=== PATIENT | male | born 1960 | race Caucasian/White ===

== ENCOUNTER 2017-08-16 09:00 | Observation (INO) | payer OTHER ==
[~2017-08-16 09:00] MED LIST: Sodium Chloride 0.9% 5 ML Syringe FLUSH PRN
[2017-08-16] MEDS: Lactated Ringers 1,000 ML IV SCH ×2 (09:25→14:51)
[2017-08-16] MEDS ORDERED: Bupivacaine 0.5%/EPINEPHrine 1:200,000 30 ML SDV ONE (09:35)
[2017-08-16] MEDS ORDERED: ceFAZolin 1 GM Vial ONE ×3 (09:35→10:36)
[2017-08-16] MEDS ORDERED: Ondansetron 4 MG/2 ML SDV IV ONE (09:45)
[2017-08-16] MEDS ORDERED: ePHEDrine 50 MG/ML SDV IV ONE (09:45)
[2017-08-16] MEDS ORDERED: Lactated Ringers 1,000 ML ONE (09:45)
[2017-08-16] MEDS ORDERED: Succinylcholine 200 MG/10 ML MDV IV ONE (09:45)
[2017-08-16] MEDS ORDERED: Midazolam 1 MG/ML 2 ML SDV ONE (09:45)
[2017-08-16] MEDS ORDERED: Propofol 200 MG/20 ML SDV IV ONE (09:45)
[2017-08-16] MEDS ORDERED: Propofol 200 MG/20 ML SDV ONE (09:45)
[2017-08-16] MEDS ORDERED: ceFAZolin 1 GM Vial IV ONE (09:45)
[2017-08-16] MEDS ORDERED: Midazolam 1 MG/ML 2 ML SDV IV ONE (09:45)
[2017-08-16] MEDS ORDERED: fentaNYL 250 MCG/5 ML SDV ONE (09:45)
[2017-08-16] MEDS ORDERED: Dexamethasone 4 MG/ML SDV IV ONE (09:45)
[2017-08-16] MEDS ORDERED: Rocuronium 50 MG/5 ML Vial IV ONE (09:45)
[2017-08-16] MEDS ORDERED: fentaNYL 250 MCG/5 ML SDV IV ONE (09:45)
--- NOTE | 2017-08-16 09:46 | PCM.PN ---
- General Info Date of Service: 08/16/17 Admission Dx/Problem (Free Text): Ventral abdominal hernia Functional Status: Reports: Pain Controlled - Review of Systems General: Reports: Weakness HEENT: Reports: No Symptoms Pulmonary: Reports: No Symptoms Cardiovascular: Reports: No Symptoms Gastrointestinal: Reports: Other (This patient has a moderately enlarged ventral abdominal hernia that has become symptomatic. He'd like to have this corrected surgically.) Genitourinary: Reports: No Symptoms Musculoskeletal: Reports: No Symptoms Skin: Reports: No Symptoms Neurological: Reports: No Symptoms Psychiatric: Reports: No Symptoms - Patient Data Vitals - Most Recent: Last Vital Signs Temp 95.2 F L 08/16/17 09:13 Pulse 64 08/16/17 09:13 Resp 16 08/16/17 09:13 BP 147/105 H 08/16/17 09:13 Pulse Ox 98 08/16/17 09:13 Weight - Most Recent: 212 lb Med Orders - Current: Current Medications Lactated Ringer's (Ringers, Lactated) 1,000 mls @ 50 mls/hr IV ASDIRECTED [facility] Last Admin: 08/16/17 09:25 Dose: 50 mls/hr Sodium Chloride (Syrex Flush) 5 ml FLUSH Q8HR PRN PRN Reason: Keep Vein Open Discontinued Medications Bupivacaine HCl/Epinephrine Bitart (Marcaine 0.5%/Epinephrine 1:200,000) Confirm Administered Dose 30 ml .ROUTE .STK-MED ONE Stop: 08/16/17 09:36 Cefazolin Sodium (Ancef) Confirm Administered Dose 1 gm .ROUTE .STK-MED ONE Stop: 08/16/17 09:36 - Exam General: Alert, Oriented HEENT: Pupils Equal, Pupils Reactive, EOMI, Mucous Membr. Moist/[place] Neck: Supple Lungs: Clear to Auscultation, Normal Respiratory Effort Cardiovascular: Regular Rate, Regular Rhythm GI/Abdominal Exam: Normal Bowel Sounds, Soft, Non-Tender, No Organomegaly, No Distention, No Abnormal Bruit, No Mass, Pelvis Stable, Other (This patient has a moderately large ventral abdominal hernia that is symptomatic. This is reducible.) (Male) Exam: No Hernia, Normal Inspection, Normal Prostate, Circumcised Back Exam: Normal Inspection, Full Range of Motion Extremities: Normal Inspection, Normal Range of Motion, Non-Tender, No Pedal Edema, Normal Capillary Refill Skin: Warm, Dry, Intact Wound/Incisions: Healing Well Neurological: No New Focal Deficit Psy/Mental Status: Alert, Normal Affect, Normal Mood - Problem List & Annotations (1) Ventral hernia SNOMED Code(s): 156963397 Code(s): K43.9 - VENTRAL HERNIA WITHOUT OBSTRUCTION OR GANGRENE Status: Chronic Priority: Medium Current Visit: Yes Qualifiers: Obstruction and gangrene presence: without obstruction or gangrene Qualified Code(s): K43.9 - Ventral hernia without obstruction or gangrene - Problem List Review Problem List Initiated/Reviewed/Updated: Yes - My Orders Last 24 Hours: My Active Orders 08/15/17 10:30 Resuscitation Status Routine 08/16/17 09:00 Antiembolic Devices [RC] PER UNIT ROUTINE Patient to Empty Bladder [RC] ASDIRECTED Peripheral IV Care [RC] . DIRECTED Verify Patient Consent Obtain [RC] ASDIRECTED Lactated Ringers [Ringers, Lactated] 1,000 ml IV ASDIRECTED Sodium Chloride 0.9% [Syrex Flush] 5 ml FLUSH Q8HR PRN Peripheral IV Insertion Adult [OM.PC] Routine Sequential Compression Device [OM.PC] Routine 08/16/17 Breakfast Nothing Per Oral Diet [DIET] - Plan Plan:: Ventral abdominal hernia and repair with Marlex mesh.
[2017-08-16] MEDS ORDERED: Bupivacaine 0.5%/EPINEPHrine 1:200,000 30 ML SDV INJECT ONE (10:36)
[2017-08-16] MEDS ORDERED: Sodium Chloride 0.9% 20 ML SDV ONE (10:36)
[2017-08-16] MEDS ORDERED: Dexamethasone 4 MG/ML SDV ONE (10:36)
[2017-08-16] MEDS ORDERED: Morphine 4 MG/ML Syringe IVPUSH PRN (10:54)
[2017-08-16] MEDS ORDERED: fentaNYL 100 MCG/2 ML SDV IVPUSH PRN (10:55)
[2017-08-16] MEDS ORDERED: Ondansetron 4 MG/2 ML SDV IVPUSH PRN (10:55)
[2017-08-16] MEDS ORDERED: Morphine 2 MG/ML Syringe IVPUSH PRN (10:55)
--- NOTE | 2017-08-16 12:01 | PCM.OPNOTE ---
- General Post-Op/Procedure Note Date of Surgery/Procedure: 08/16/17 Operative Procedure(s): Ventral hernia repair, Marlex mesh placement. Release of small bowel adhesions. Partial omentectomy. Pre Op Diagnosis: Symptomatic ventral abdominal hernia Post-Op Diagnosis: As above, small bowel adhesions. Anesthesia Technique: General Mask Primary Surgeon: Marito Espinoza Complications: None Condition: Good Free Text/Narrative:: Preoperative diagnosis: Symptomatic ventral abdominal hernia, previous history of abdominal exploration with small bowel resection. Postoperative diagnosis: As above. Procedure performed: Repair of ventral abdominal hernia, placement of Marlex mesh, release of small bowel adhesions, partial omentectomy. Informed consent was obtained the patient regarding this procedure. All possible complications were thoroughly discussed. These include conservative care alternative methods of treatment, recurrence, infection, small bowel obstruction, bleeding, requirement of additional surgical procedures and other unknown complications. The patient decided to proceed. He was taken to the operating room and kept in the supine position. A satisfactory general anesthetic was administered by the insurance sales representative. His abdomen was thoroughly prepped and draped in the usual fashion. A vertical midline incision was made extending from the umbilicus superiorly for 5 inches and inferiorly for 3 inches. Subcutaneous dissection was performed. The hernia was readily identified 2 inches superior to the umbilicus. This had a right and left extension. We did extend the midline with a right lateral incision. The hernial sacs were dissected right down to the fascial openings. The fascial openings are slightly enlarged and the sacs were opened. This contained preperitoneal fat and omental tissue. These were excised. The pedicles were sutured with 0 Polysorb suture. In the middle the also encountered small bowel. Liver many adhesions between the small bowel. These were carefully lysed. The small bowel was then replaced back into the abdominal cavity after making sure there was good viability. The fascia was less than ideal. It was approximated with 1 Nurolon sutures. We also used a Marlex mesh to support the anterior abdominal fascia and anchored it with 0 nylon sutures. The entire wound was thoroughly irrigated with Ancef and saline. Small bleeders were cauterized. A 1/4 inch round Neal-Gil drain was left in the wound and brought out through the lateral edge of the right lateral incision. Approximately 15 mL of Marcaine 0.5 % with epinephrine was injected into the subcutaneoustissues and the fascial sheath to prevent postoperative pain. The subcutaneous tissue was approximated with 4-0 Polysorb and the skin was sutured with skin clips. The patient tolerated the procedure very well. There were no operative complications. Blood loss was approximately 10-15 mL. Sponge needle and instrument count were correct. The patient was transferred to the recovery room in an excellent condition.
[2017-08-16] MEDS ORDERED: HYDROmorphone 2 MG/ML SDV IVPUSH PRN (12:02)
[2017-08-16] MEDS: Ketorolac 30 MG/ML SDV IVPUSH PRN ×2 (12:49→21:34)
[2017-08-16] MEDS ORDERED: Non-Formulary Medication 1 Each (Rup Rub 1 APPLIC) TOP PRN (17:31)
[2017-08-16] MEDS ORDERED: Nitroglycerin 0.4 MG Tab.SL SL PRN (17:45)
[2017-08-16] MEDS ORDERED: Ondansetron 4 MG/2 ML SDV ONE (18:47)
[2017-08-16] MEDS ORDERED: Promethazine 25 MG in Sodium Chloride 0.9% 50 ML IV PRN (20:40)
[2017-08-16] MEDS: Promethazine 25 MG/ML SDV ONE ×2 (20:56→20:59)
[2017-08-17] MEDS: Lactated Ringers 1,000 ML IV SCH (00:31)
[2017-08-17] MEDS: Ondansetron 4 MG/2 ML SDV IVPUSH PRN ×2 (00:39→15:05)
[2017-08-17] MEDS: Ketorolac 30 MG/ML SDV IVPUSH PRN ×2 (06:03→15:05)
[2017-08-17 08:46] LABS: CHLORIDE,CL 107 mmol/L (98-115); SODIUM,NA 141 mmol/L (136-145)
[2017-08-17] MEDS ORDERED: Aspirin 81 MG Tab.EC PO SCH (09:00)
[2017-08-17] MEDS ORDERED: atorvaSTATin 40 MG Tab PO SCH (09:00)
[2017-08-17] MEDS ORDERED: Metoprolol Succinate 50 MG Tab.ER PO SCH (09:00)
[2017-08-17 11:43] VITALS: BP 123/71
--- NOTE | 2017-08-18 12:35 | PN ---
08/17/2017 PATIENT NAME: SANTIAGO SOTO SUBJECTIVE: This is a very pleasant 57-year-old gentleman who was admitted yesterday for elective ventral hernia repair. He did undergo the procedure yesterday. He also underwent a release of small-bowel adhesions and a partial omentectomy. He is doing well this morning. LABORATORY DATA: Indicates a normal hemoglobin of 12.4 and white count of 8.3. OBJECTIVE: VITAL SIGNS: Stable. Blood pressure is 120/77, oxygen saturation 96%, pulse is 80. His intake and output are satisfactory. GENERAL: On examination, the patient did complain of emesis last night, but he feels well this morning. He is on clear liquids. He has been passing some gas, but not had a bowel movement. He is alert, well oriented to space, time, and person. HEART AND LUNGS: Stable. ABDOMEN: Soft. The Neal-Gil is draining. Bowel sounds are present. EXTREMITIES: Normal. NEUROLOGIC: Intact. IMPRESSION AND PLAN: This is postop day #1 for ventral abdominal hernia repair with Marlex mesh and release of intestinal small bowel adhesions as well as partial omentectomy. The patient is doing well. We will get him up and move around today. Once he passes a little bit more flatus and he feels well, he could be discharged later on today. Discharge instructions will include no bending, turning, and lifting anything more than 10 pounds. He is also advised to wear the abdominal binder at all times, especially when up. We will follow him in the clinic in about 10 days to two weeks' time. Diet will be full liquids, advance to soft diet later on today. /[id number]/MODL MTDD
--- NOTE | 2017-08-22 09:50 | DISCH ---
FINAL DIAGNOSIS: Status post elective ventral hernia repair. BRIEF HISTORY: This 57-year-old gentleman was admitted for elective ventral hernia repair. He underwent procedure by Dr. Marito Espinoza. He had no complications during the surgery or postoperatively. He also underwent a repair of small-bowel adhesions and a partial omentectomy. This patient had a Marlex mesh and release of his intestinal small bowel adhesions as well as partial omentectomy. He did well postoperatively. He was up moving around. He was passing more flatus. On discharge, he felt well, and he was discharged that afternoon. He was given instructions of no bending, turning, lifting anything more than 10 pounds, to wear an abdominal binder at all the times, especially when up. He was advanced to a full liquid diet. He did well with that, so he was advanced to a soft diet later that day on day of discharge. PHYSICAL EXAM ON DISCHARGE: VITAL SIGNS: On discharge, blood pressure 122/71, heart rate 85, temperature 98.9, O2 saturation 94%, respiratory rate was 12. LABORATORY DATA: Labs on date of discharge, white count 8.3, hemoglobin 12.4, hematocrit 36.9. Electrolytes were good. AST 11, total protein 6.3, albumin 3.0. Neal-Gil Drain was pulled by Dr. Marito Espinoza on the day of discharge. Bowel sounds were present. DISPOSITION: The patient will be discharged from the hospital. He was given followup instructions. /[id number]/MODL
== END 2017-08-17 15:30 | disposition home or self-care (01) ==
LOC: KA.SDS 09:00 → KA.MS 12:30
PROVIDERS: ADMIT Family Medicine; ATTEND Family Medicine
DX: K43.9 Ventral hernia without obstruction or gangrene (principal); I25.10 Atherosclerotic heart disease of native coronary artery without angina pectoris; E78.00 Pure hypercholesterolemia, unspecified; I10 Essential (primary) hypertension; Z79.82 Long term (current) use of aspirin; Z79.899 Other long term (current) drug therapy; Z88.8 Allergy status to other drugs, medicaments and biological substances; Z88.2 Allergy status to sulfonamides; Z96.659 Presence of unspecified artificial knee joint
CPT/HCPCS: 36415; 49560; 49568; 80053; 85025; A9270; C1781; G0378; J0330; J0690; J1100; J1170; J1885; J2250; J2405; J2550; J2704; J3010; J7050; J7120

== ENCOUNTER 2017-08-24 20:00 | Inpatient (IN) | payer OTHER ==
[2017-08-24] MEDS ORDERED: Sodium Chloride 0.9% 1,000 ML IV ONE (20:34)
[2017-08-24] MEDS ORDERED: Ondansetron 4 MG/2 ML SDV IVPUSH ONE (20:34)
[2017-08-24] MEDS ORDERED: HYDROmorphone 1 MG/ML Syringe ONE (20:35)
[2017-08-24] MEDS ORDERED: Ondansetron 4 MG/2 ML SDV ONE (20:35)
[2017-08-24] MEDS: HYDROmorphone 1 MG/ML Syringe IVPUSH ONE ×2 (20:39→22:21)
--- NOTE | 2017-08-24 20:40 | EDM.PDOC ---
ED HPI GENERAL MEDICAL PROBLEM - General Chief Complaint: Abdominal Pain Stated Complaint: ABDOMINAL PAIN Time Seen by Provider: 08/24/17 20:29 Source of Information: Reports: Patient History Limitations: Reports: No Limitations - History of Present Illness INITIAL COMMENTS - FREE TEXT/NARRATIVE: Patient is a 57-year-old gentleman who presents to the emergency department via EMS with a complaint of abdominal pain. He underwent ventral hernia repair on 08/16/2017 was discharged from the hospital the next day. He had an uneventful hospital stay. Patient states he was feeling well since discharge from the hospital, but at 5 p.m. today developed moderate to severe diffuse abdominal pain and vomiting. Denies fever, trauma, bowel changes, or dysuria. Onset: Today Onset Date: 08/24/17 Onset Time: 17:00 Duration: Hour(s):, Getting Worse Location: Reports: Abdomen Quality: Reports: Ache, Throbbing Severity: Moderate Improves with: Reports: None Worsens with: Reports: None Associated Symptoms: Reports: Nausea/Vomiting - Related Data Allergies Allergy/AdvReac Type Severity Reaction Status Date / Time azathioprine sodium Allergy Cannot Verified 08/24/17 20:10 [From Imuran] Remember Sulfa (Sulfonamide Allergy Cannot Verified 08/24/17 20:10 Antibiotics) Remember Home Meds: Home Meds Folic Acid 400 mcg PO DAILY 09/10/13 [History] Metoprolol Succinate [Toprol XL 50mg] 50 mg PO DAILY 09/10/13 [History] atorvaSTATin Calcium [Atorvastatin Calcium] 40 mg PO DAILY 09/10/13 [History] Aspirin [Halfprin] 81 mg PO DAILY 09/26/13 [History] Cholecalciferol (Vitamin D3) [Vitamin D3] 4,000 unit PO DAILY 09/26/13 [History] InFLIXimab [Remicade] 500 mg IV NASREEN 09/26/13 [History] Nitroglycerin [Nitrostat] 0.4 mg SL ONETIME PRN 09/26/13 [History] Ibuprofen 200 - 600 mg PO TID PRN 08/15/17 [History] Past Medical History HEENT History: Reports: Impaired Vision Cardiovascular History: Reports: Angina, Stents Respiratory History: Reports: Other (See Below) Other Respiratory History: Hospitalized for PNeu Oct 2016 x 3days Gastrointestinal History: Reports: Other (See Below) Other Gastrointestinal History: Enlarged Spleen and fatty deposites onliver noted 2016 when hospitalized for Pneumonia, Cat Scan scheduled 3 mo following, Hx of crohns Neurological History: Reports: Concussion Hematologic History: Reports: Iron Deficiency Immunologic History: Reports: Immunosuppression - Infectious Disease History Infectious Disease History: Reports: Chicken Pox, Shingles - Past Surgical History HEENT Surgical History: Reports: None Cardiovascular Surgical History: Reports: Coronary Artery Stent Other Cardiovascular Surgeries/Procedures: November 2012 Respiratory Surgical History: Reports: None GI Surgical History: Reports: Cholecystectomy, Colostomy, Other (See Below) Other GI Surgeries/Procedures: perforated bowel with colostomy and colostomy reversal 1992 Neurological Surgical History: Reports: None Musculoskeletal Surgical History: Reports: Knee Replacement, Other (See Below) Other Musculoskeletal Surgeries/Procedures:: Left Knee replaced Sep 17 2015 Social & Family History - Family History Family Medical History: Noncontributory - Tobacco Use Smoking Status *Q: Never Smoker Years of Tobacco use: 1 Second Hand Smoke Exposure: Yes - Caffeine Use Caffeine Use: Reports: None - Alcohol Use Days Per Week of Alcohol Use: 2 Number of Drinks Per Day: 2 Total Drinks Per Week: 4 - Recreational Drug Use Recreational Drug Use: No ED ROS GENERAL - Review of Systems Review Of Systems: ROS reveals no pertinent complaints other than HPI. Constitutional: Reports: No Symptoms HEENT: Reports: No Symptoms Respiratory: Reports: No Symptoms Cardiovascular: Reports: No Symptoms Endocrine: Reports: No Symptoms GI/Abdominal: Reports: Abdominal Pain, Nausea, Vomiting. Denies: Bloody Stool, Constipation, Diarrhea : Reports: No Symptoms Musculoskeletal: Reports: No Symptoms Skin: Reports: No Symptoms Neurological: Reports: No Symptoms Psychiatric: Reports: No Symptoms Hematologic/Lymphatic: Reports: No Symptoms Immunologic: Reports: No Symptoms ED EXAM, GI/ABD - Physical Exam Exam: See Below Exam Limited By: No Limitations General Appearance: Alert, WD/WN, Mild Distress Throat/Mouth: Normal Inspection, Normal Oropharynx, No Airway Compromise Head: Atraumatic, Normocephalic Neck: Normal Inspection Respiratory/Chest: No Respiratory Distress, Lungs Clear, Normal Breath Sounds, No Accessory Muscle Use, Chest Non-Tender Cardiovascular: Regular Rate, Rhythm, No Murmur GI/Abdominal Exam: Normal Bowel Sounds, Rebound, Tender (diffusely). No: Rigid Back Exam: Normal Inspection. No: CVA Tenderness (L), CVA Tenderness (R) Extremities: Normal Inspection, No Pedal Edema Neurological: Alert, Oriented, Normal Cognition Psychiatric: Normal Affect, Normal Mood Skin Exam: Warm, Dry, Intact, Normal Color, No Rash Course - Orders/Labs/Meds Orders: Active Orders 24 hr Category Date Time Status CBC WITH AUTO DIFF [HEME] Stat Lab 08/24/17 20:11 Ordered CMP [COMPREHENSIVE METABOLIC PN,CMP] [CHEM] Stat Lab 08/24/17 20:11 Ordered Sodium Chloride 0.9% [Syrex Flush] Med 08/24/17 20:12 Active 5 ml FLUSH Q8HR PRN Saline Lock Insert [OM.PC] Routine Oth 08/24/17 20:12 Ordered Medication Orders Sodium Chloride (Syrex Flush) 5 ml FLUSH Q8HR PRN PRN Reason: Keep Vein Open Meds: Medications Generic Name Dose Route Start Last Admin Trade Name Freq PRN Reason Stop Dose Admin Sodium Chloride 5 ml 08/24/17 20:12 Syrex Flush FLUSH Q8HR PRN Keep Vein Open - Radiology Interpretation Free Text/Narrative:: CT OF ABDOMEN AND PELVIS WITH IV CONTRAST SHOWS SMALL FAT-CONTAINING HERNIAS AND POSTSURGICAL CHANGES IN THE REGION OF THE UMBILICUS WHICH SHOWS FAT STRANDING. NO EVIDENCE FOR INCARCERATION. FINDINGS CONSISTENT WITH PARTIAL SMALL BOWEL OF TRACTION CT Results Date: 08/24/17 - Re-Assessments/Exams Free Text/Narrative Re-Assessment/Exam: 08/24/17 22:17 PATIENT AFEBRILE, NONTOXIC APPEARING. VITAL SIGNS ARE STABLE. DISCUSSED CASE WITH DR. GARCIA AND PATIENT WILL BE ADMITTED AND FOLLOWED. Departure - Departure Time of Disposition: 22:19 Disposition: Admitted As Inpatient 66 Condition: Fair Clinical Impression: Small bowel obstruction Hernia, umbilical Qualifiers: Obstruction and gangrene presence: without obstruction or gangrene Qualified Code(s): K42.9 - Umbilical hernia without obstruction or gangrene - Discharge Information Referrals: Joy Espinoza MD [Primary Care Provider] - - My Orders Last 24 Hours: My Active Orders 08/24/17 20:11 CBC WITH AUTO DIFF [HEME] Stat CMP [COMPREHENSIVE METABOLIC PN,CMP] [CHEM] Stat 08/24/17 20:12 Sodium Chloride 0.9% [Syrex Flush] 5 ml FLUSH Q8HR PRN Saline Lock Insert [OM.PC] Routine - Assessment/Plan Last 24 Hours: My Active Orders 08/24/17 20:11 CBC WITH AUTO DIFF [HEME] Stat CMP [COMPREHENSIVE METABOLIC PN,CMP] [CHEM] Stat 08/24/17 20:12 Sodium Chloride 0.9% [Syrex Flush] 5 ml FLUSH Q8HR PRN Saline Lock Insert [OM.PC] Routine Assessment:: SMALL BOWEL OBSTRUCTION, UMBILICAL HERNIA Plan: ADMIT INPATIENT
[2017-08-24] MEDS: Sodium Chloride 0.9% 5 ML Syringe FLUSH PRN (20:42)
[2017-08-24 21:03] LABS: CHLORIDE,CL 105 mmol/L (98-115); SODIUM,NA 141 mmol/L (136-145)
[2017-08-24] MEDS ORDERED: Sodium Chloride 0.9% 50 ML SDV FLUSH ONE (21:20)
[2017-08-24] MEDS ORDERED: Iopamidol 612 MG/ML 100 ML Bottle IVPUSH ONE (21:35)
[2017-08-24] MEDS ORDERED: HYDROmorphone 1 MG/ML Syringe IVPUSH ONE (22:23)
[2017-08-24] MEDS ORDERED: Morphine 2 MG/ML Syringe IVPUSH PRN (23:18)
[2017-08-24] MEDS: Lactated Ringers 1,000 ML IV SCH (23:51)
[2017-08-25] MEDS: Ondansetron 4 MG/2 ML SDV IV PRN ×3 (03:08→17:01)
[2017-08-25] MEDS ORDERED: Ketorolac 30 MG/ML SDV IVPUSH ONE (06:54)
[2017-08-25] MEDS ORDERED: Ketorolac 30 MG/ML SDV ONE (06:56)
[2017-08-25] MEDS: Lactated Ringers 1,000 ML IV SCH ×3 (06:59→23:33)
[2017-08-25 08:12] LABS: CHLORIDE,CL 107 mmol/L (98-115); SODIUM,NA 142 mmol/L (136-145)
[2017-08-25] MEDS ORDERED: Metoprolol Succinate 50 MG Tab.ER PO SCH (09:00)
--- NOTE | 2017-08-25 10:51 | PCM.HP ---
H&P History of Present Illness - General Date of Service: 08/25/17 Admit Problem/Dx: Small bowel obstruction Source of Information: Patient, Old Records, Provider (Ap Olson, ED provider) History Limitations: Reports: No Limitations - History of Present Illness Initial Comments - Free Text/Narative: Mr. Parry is a 57yoM who underwent ventral hernia repair on 08/16/17 and was doing well post-operatively until the evening of 08/24/17 around 1700 when he developed acute lower abdominal pain. He had a large Thanksgiving meal earlier in the afternoon around 1400. In addition to the pain, developed nausea and vomiting without any alleviating factors that continued to worsen and reported to the [facility] ED late in the evening of 08/24/17 where evaluation was significant for CT A/P with findings of partial mid small bowel obstruction as well as postsurgical changes in the region of the umbilicus with edema/fat stranding of small fat-containing hernias and small amount of soft tissue gas likely related to recent surgery. I was called for admission given the small bowel obstruction and associated pain and nausea. Upon my evaluation of him this morning, he states he is feeling tired, but otherwise much improved. Minimal lower abdominal pain and no nausea currently. Received morphine 2mg and Zofran 4mg IV around 0300. Admits to feeling some flatus twice in the last several hours. He denies having developed any other symptoms since admission, including denying any fever or chills. Denies any hx of SBO, but has had multiple abdominal surgeries and Crohn's disease well controlled on Rem[employer] recently. Anterior Abdomen Pain Score (Numeric/FACES): 4 - Related Data Allergies/Adverse Reactions: Allergies Allergy/AdvReac Type Severity Reaction Status Date / Time azathioprine sodium Allergy Cannot Verified 08/24/17 20:10 [From Imuran] Remember Sulfa (Sulfonamide Allergy Cannot Verified 08/24/17 20:10 Antibiotics) Remember Home Medications: Home Meds Folic Acid 400 mcg PO DAILY 09/10/13 [History] Metoprolol Succinate [Toprol XL 50mg] 50 mg PO DAILY 09/10/13 [History] atorvaSTATin Calcium [Atorvastatin Calcium] 40 mg PO DAILY 09/10/13 [History] Aspirin [Halfprin] 81 mg PO DAILY 09/26/13 [History] Cholecalciferol (Vitamin D3) [Vitamin D3] 4,000 unit PO DAILY 09/26/13 [History] InFLIXimab [Remicade] 500 mg IV ASDIRECTED 09/26/13 [History] Nitroglycerin [Nitrostat] 0.4 mg SL ONETIME PRN 09/26/13 [History] Ibuprofen 200 - 600 mg PO TID PRN 08/15/17 [History] Past Medical History HEENT History: Reports: Impaired Vision Cardiovascular History: Reports: Angina, Stents Respiratory History: Reports: Other (See Below) Other Respiratory History: Hospitalized for PNeu Oct 2016 x 3days Gastrointestinal History: Reports: Other (See Below) Other Gastrointestinal History: Enlarged Spleen and fatty deposites onliver noted 2016 when hospitalized for Pneumonia, Cat Scan scheduled 3 mo following, Hx of crohns Neurological History: Reports: Concussion Hematologic History: Reports: Iron Deficiency Immunologic History: Reports: Immunosuppression - Infectious Disease History Infectious Disease History: Reports: Chicken Pox, Shingles - Past Surgical History HEENT Surgical History: Reports: None Cardiovascular Surgical History: Reports: Coronary Artery Stent Other Cardiovascular Surgeries/Procedures: November 2012 Respiratory Surgical History: Reports: None GI Surgical History: Reports: Cholecystectomy, Colostomy, Other (See Below) Other GI Surgeries/Procedures: perforated bowel with colostomy and colostomy reversal 1992 Neurological Surgical History: Reports: None Musculoskeletal Surgical History: Reports: Knee Replacement, Other (See Below) Other Musculoskeletal Surgeries/Procedures:: Left Knee replaced Sep 17 2015 Social & Family History - Family History Family Medical History: Noncontributory - Tobacco Use Smoking Status *Q: Never Smoker Years of Tobacco use: 1 Second Hand Smoke Exposure: Yes - Caffeine Use Caffeine Use: Reports: None - Alcohol Use Days Per Week of Alcohol Use: 2 Number of Drinks Per Day: 2 Total Drinks Per Week: 4 - Recreational Drug Use Recreational Drug Use: No H&P Review of Systems - Review of Systems: Review Of Systems: See Below General: Reports: Weakness (generalized). Denies: Fever, Chills HEENT: Denies: Headaches (resolved since earlier this AM), Sore Throat, Visual Changes Pulmonary: Denies: Shortness of Breath, Wheezing, Cough Cardiovascular: Denies: Chest Pain, Palpitations, Edema Gastrointestinal: Reports: Abdominal Pain, Anorexia, Flatus. Denies: Constipation, Diarrhea, Nausea (resolved since early this AM), Vomiting (not since arrival) Genitourinary: Denies: Dysuria, Frequency, Pain Musculoskeletal: Denies: Back Pain, Joint Pain, Muscle Stiffness Skin: Denies: Rash Neurological: Denies: Dizziness, Numbness, Syncope, Tingling Exam - Exam Exam: See Below - Vital Signs Vital Signs: Last Vital Signs Temp 36.6 C 08/25/17 07:00 Pulse 67 08/25/17 07:00 Resp 16 08/25/17 07:00 BP 122/79 08/25/17 07:00 Pulse Ox 94 L 08/25/17 07:00 Weight: 94.347 kg - Exam Physical Exam Comments:: GENERAL: Adult white male lying in hospital bed in no acute distress. HEENT: Normocephalic, atraumatic. Conjunctiva clear. Nares patent without discharge. Mucous membranes moist. NECK: Supple, no masses. CV: Regular rate and rhythm, no murmurs, rubs, or gallops. 2+ radial pulses. PULMONARY: Normal effort, clear to auscultation bilaterally, no wheezes, rales, or rhonchi. ABDOMEN: Positive bowel sounds in all 4 quadrants, soft, nondistended, mild tenderness to palpation in lower quadrants without guarding/rigidity/rebound. EXTREMITIES: No edema, cyanosis, or clubbing. MUSCULOSKELETAL: Moves all extremities well. NEUROLOGICAL: No obvious deficits. DERMATOLOGIC: No rashes or suspicious lesions in exposed areas. PSYCHIATRIC: Alert, interactive, appropriate affect. - Patient Data Lab Results Last 24 hrs: Laboratory Results - last 24 hr 08/25/17 08/25/17 Range/Units 07:10 07:10 WBC 6.3 (5.0-10.0) 10^3/uL RBC 4.34 L (4.50-6.00) 10^6/uL Hgb 13.0 (13.0-17.0) g/dL Hct 38.7 L (40.0-52.0) % MCV 89.1 (82.0-92.0) fL MCH 29.9 (27.0-31.0) pg MCHC 33.6 (32.0-36.0) g/dL RDW 13.0 (11.5-14.5) % Plt Count 248 (150-300) 10^3/uL MPV 7.6 (7.4-10.4) fL Neut % (Auto) 59.5 (50.0-70.0) % Lymph % (Auto) 25.7 (20.0-40.0) % Hendry % (Auto) 7.6 (2.0-8.0) % Eos % (Auto) 6.2 H (1.0-3.0) % Baso % (Auto) 1.0 (0.0-1.0) % Neut # (Auto) 3.7 (2.5-7.0) 10^3/uL Lymph # (Auto) 1.6 (1.0-4.0) 10^3/uL Hendry # (Auto) 0.5 (0.1-0.8) 10^3/uL Eos # (Auto) 0.4 H (0.1-0.3) 10^3/uL Baso # (Auto) 0.1 (0.0-0.1) 10^3/uL Sodium 142 (136-145) mmol/L Potassium 4.0 (3.3-5.3) mmol/L Chloride 107 (98-115) mmol/L Carbon Dioxide 28.2 (21.0-32.0) mmol/L BUN 24 (6-25) mg/dL Creatinine 1.01 (0.51-1.17) mg/dL Est Cr Clr Drug Dosing 91.19 mL/min Estimated GFR (MDRD) > 60 mL/min Glucose 110 (70-110) mg/dL Calcium 8.4 L (8.7-10.3) mg/dL Total Bilirubin 0.6 (0.2-1.0) mg/dL AST 14 L (15-37) U/L ALT 20 (12-78) U/L Alkaline Phosphatase 81 (46-116) IU/L Total Protein 6.2 L (6.4-8.2) g/dL Albumin 2.88 L (3.00-4.80) g/dL Result Diagrams: 08/25/17 07:10 08/25/17 07:10 *Q Meaningful Use (ADM) - VTE *Q VTE Criteria *Q: - Stroke *Q Stroke Criteria *Q: - AMI *Q AMI Criteria *Q: Problem List Initiated/Reviewed/Updated: Yes Orders Last 24hrs: Active Orders 24 hr Category Date Time Status Ambulate [RC] ASDIRECTED Care 08/25/17 10:50 Ordered Antiembolic Devices [RC] PER UNIT ROUTINE Care 08/24/17 23:21 Active Intake and Output [RC] 1400,2200,0600 Care 08/24/17 23:19 Active Oxygen Therapy [RC] PRN Care 08/24/17 23:19 Active Up With Assistance [RC] ASDIRECTED Care 08/24/17 23:18 Active VTE/DVT Education [RC] PER UNIT ROUTINE Care 08/24/17 23:19 Active Clear Liquid Diet [DIET] Diet 08/25/17 Lunch Ordered CULTURE WOUND [RM] Routine Lab 08/24/17 22:50 Received HYDROmorphone [Dilaudid] Med 08/25/17 10:44 Ordered 1 mg IVPUSH Q4H PRN Lactated Ringers [Ringers, Lactated] 1,000 ml Med 08/24/17 23:30 Active IV ASDIRECTED Ondansetron [Zofran] Med 08/24/17 23:18 Active 4 mg IV Q6H PRN Sequential Compression Device [OM.PC] Per Unit Routine Oth 08/24/17 23:20 Ordered Medication Orders Hydromorphone HCl (Dilaudid) 1 mg IVPUSH Q4H PRN PRN Reason: Pain Lactated Ringer's (Ringers, Lactated) 1,000 mls @ 125 mls/hr IV ASDIRECTED [facility] Last Admin: 08/25/17 06:59 Dose: 125 mls/hr Infusion: 08/25/17 06:59 Dose: 125 mls/hr Admin: 08/24/17 23:51 Dose: 125 mls/hr Ondansetron HCl (Zofran) 4 mg IV Q6H PRN PRN Reason: Nausea/Vomiting Last Admin: 08/25/17 03:08 Dose: 4 mg Sodium Chloride (Syrex Flush) 5 ml FLUSH Q8HR PRN PRN Reason: Keep Vein Open Last Admin: 08/24/17 20:42 Dose: 5 ml Assessment/Plan Comment:: Mr. Parry is a 57yoM with a history significant for multiple abdominal surgeries including ventral hernia repair on 08/16/17, Crohn's disease, and CAD , who developed acute abdominal pain on 08/24/17. Evaluation in the ED significant for CT A/P with findings of partial mid small bowel obstruction as well as postsurgical changes in the region of the umbilicus with edema/fat stranding of small fat-containing hernias and small amount of soft tissue gas likely related to recent surgery. He is being admitted for inpatient management for small bowel obstruction. # Small bowel obstruction No evidence of infection or electrolyte imbalance on admission or repeat laboratory studies this morning. Symptomatically improved with bowel rest and IVF in addition to morphine and Zofran x1 overnight. He reports passing flatus and has active bowel sounds this morning. Given the improvement, will advance diet to clear liquids and monitor clinical status. Encourage ambulation. Continue monitoring I/O and will plan to decrease IVF when tolerating oral intake. If not continuing to improve, will consult with general surgery for consideration of surgical exploration. # S/p ventral hernia repair with residual small fat-containing hernias Symptomatically was doing quite well post-operatively until last evening when SBO developed. Incision site doing well without evidence of infection. Will continue to monitor clinically. # Crohn's disease S/p bowel resection in the . Recently well controlled on Rem[employer]. Likely contribution of adhesions and current small bowel obstruction. # Eosinophilia Not previously noted on differential. Asymptomatic. Repeat in the future. Chronic conditions: # CAD/HTN/HLD: Stable. Restart ASA, metoprolol, and atorvastatin once tolerating oral intake. # Arthritis: Stable. Uses occasional ibuprofen at home, which is being held in the setting of SBO. Hospitalization details: # FEN: LR @ 125cc/hr, as above. Electrolytes normal. Advance diet to clear liquids, as above. # PPX: Low risk for DVT, so will use SCDs and frequent ambulation. # Code status: FULL. # Emergency contact: Mer . # Disposition: Admit to inpatient status for management of small bowel obstruction.
[2017-08-25] MEDS: Sodium Chloride 0.9% 5 ML Syringe FLUSH PRN ×3 (12:50→17:01)
[2017-08-25] MEDS: HYDROmorphone 1 MG/ML Syringe IVPUSH PRN (12:56)
[2017-08-25] MEDS ORDERED: Promethazine 6.25 MG in Sodium Chloride 0.9% 50 ML IV PRN (19:37)
[2017-08-26] MEDS: HYDROmorphone 1 MG/ML Syringe IVPUSH PRN ×2 (04:36→08:53)
[2017-08-26] MEDS: Lactated Ringers 1,000 ML IV SCH ×2 (06:53→16:29)
[2017-08-26] MEDS: Sodium Chloride 0.9% 5 ML Syringe FLUSH PRN ×2 (08:54→12:07)
[2017-08-26 10:36] LABS: CHLORIDE,CL 104 mmol/L (98-115); SODIUM,NA 140 mmol/L (136-145)
[2017-08-26] MEDS: Ondansetron 4 MG/2 ML SDV IV PRN ×2 (12:07→20:19)
--- NOTE | 2017-08-26 13:20 | PCM.PN ---
- General Info Date of Service: 08/26/17 Admission Dx/Problem (Free Text): Small bowel obstruction Subjective Update: Since yesterday morning, diet was attempted to be advanced to clear liquids yesterday afternoon, but he had recurring abdominal pain, nausea, and emesis relieved with IV medications. Since that time, he has again had improvement with improved abdominal pain and nausea. Since yesterday afternoon, he has had 2 doses of antiemetics and 2 doses of hydromorphone. Yesterday, he admitted to having some flatus passing, but denies any this morning thus far. He denies any new symptoms, including fever, chills, chest pain, shortness of breath, localized abdominal pain, dysuria, or incisional complaints. He is concerned about being able to make it to his mother's next Monday. No nursing concerns. - Patient Data Vitals - Most Recent: Last Vital Signs Temp 36.9 C 08/26/17 11:00 Pulse 79 08/26/17 11:00 Resp 16 08/26/17 11:00 BP 127/92 H 08/26/17 11:00 Pulse Ox 94 L 08/26/17 11:00 Weight - Most Recent: 94.347 kg I&O - Last 24 Hours: Intake & Output 08/25/17 08/26/17 08/26/17 22:59 06:59 14:59 Intake Total 1044 1010 Output Total 900 1600 Balance 144 1010 -1600 Lab Results Last 24 Hours: Laboratory Results - last 24 hr 08/26/17 08/26/17 Range/Units 10:05 10:07 WBC 4.5 L (5.0-10.0) 10^3/uL RBC 4.49 L (4.50-6.00) 10^6/uL Hgb 13.5 (13.0-17.0) g/dL Hct 40.5 (40.0-52.0) % MCV 90.2 (82.0-92.0) fL MCH 30.0 (27.0-31.0) pg MCHC 33.2 (32.0-36.0) g/dL RDW 12.9 (11.5-14.5) % Plt Count 277 (150-300) 10^3/uL MPV 6.5 L (7.4-10.4) fL Neut % (Auto) 47.4 L (50.0-70.0) % Lymph % (Auto) 34.2 (20.0-40.0) % Gaston % (Auto) 8.8 H (2.0-8.0) % Eos % (Auto) 7.7 H (1.0-3.0) % Baso % (Auto) 1.9 H (0.0-1.0) % Neut # (Auto) 2.2 L (2.5-7.0) 10^3/uL Lymph # (Auto) 1.5 (1.0-4.0) 10^3/uL Gaston # (Auto) 0.4 (0.1-0.8) 10^3/uL Eos # (Auto) 0.3 (0.1-0.3) 10^3/uL Baso # (Auto) 0.1 (0.0-0.1) 10^3/uL Sodium 140 (136-145) mmol/L Potassium 4.3 (3.3-5.3) mmol/L Chloride 104 (98-115) mmol/L Carbon Dioxide 29.7 (21.0-32.0) mmol/L BUN 13 (6-25) mg/dL Creatinine 1.07 (0.51-1.17) mg/dL Est Cr Clr Drug Dosing 86.08 mL/min Estimated GFR (MDRD) > 60 mL/min Glucose 94 (70-110) mg/dL Calcium 8.5 L (8.7-10.3) mg/dL Total Bilirubin 0.7 (0.2-1.0) mg/dL AST 14 L (15-37) U/L ALT 19 (12-78) U/L Alkaline Phosphatase 83 (46-116) IU/L C-Reactive Protein 0.2 (0.0-0.9) mg/dL Total Protein 6.5 (6.4-8.2) g/dL Albumin 3.02 (3.00-4.80) g/dL Satnam Results Last 24 Hours: Microbiology 08/24/17 22:50 Wound Culture - Final Abdomen - Incision Staphylococcus Coagulase Neg Med Orders - Current: Current Medications Hydromorphone HCl (Dilaudid) 1 mg IVPUSH Q4H PRN PRN Reason: Pain Last Admin: 08/26/17 08:53 Dose: 1 mg Lactated Ringer's (Ringers, Lactated) 1,000 mls @ 125 mls/hr IV ASDIRECTED TELMA Last Admin: 08/26/17 06:53 Dose: 125 mls/hr Promethazine HCl 6.25 mg/ (Sodium Chloride) 50.25 mls @ 200 mls/hr IV Q4H PRN PRN Reason: Nausea/Vomiting Last Admin: 08/25/17 20:05 Dose: 200 mls/hr Ondansetron HCl (Zofran) 4 mg IV Q4H PRN PRN Reason: Nausea/Vomiting Last Admin: 08/26/17 12:07 Dose: 4 mg Sodium Chloride (Syrex Flush) 5 ml FLUSH Q8HR PRN PRN Reason: Keep Vein Open Last Admin: 08/26/17 12:07 Dose: 5 ml Discontinued Medications Hydromorphone HCl (Dilaudid) 1 mg IVPUSH ONETIME ONE Stop: 08/24/17 20:35 Last Admin: 08/24/17 22:21 Dose: 1 mg Hydromorphone HCl (Dilaudid) Confirm Administered Dose 1 mg .ROUTE .STK-MED ONE Stop: 08/24/17 20:36 Last Admin: 08/24/17 20:41 Dose: Not Given Hydromorphone HCl (Dilaudid) 1 mg IVPUSH ONETIME ONE Stop: 08/24/17 22:24 Last Admin: 08/24/17 23:54 Dose: Not Given Sodium Chloride (Normal Saline) 1,000 mls @ 999 mls/hr IV .BOLUS ONE Stop: 08/24/17 21:34 Last Admin: 08/24/17 20:49 Dose: 999 mls/hr Iopamidol (Isovue-300 (61%)) 100 ml IVPUSH ONETIME ONE Stop: 08/24/17 21:36 Last Admin: 08/24/17 21:39 Dose: 99 ml Ketorolac Tromethamine (Toradol) 30 mg IVPUSH ONETIME ONE Stop: 08/25/17 06:55 Last Admin: 08/25/17 07:00 Dose: 30 mg Ketorolac Tromethamine (Toradol) Confirm Administered Dose 30 mg .ROUTE .STK- MED ONE Stop: 08/25/17 06:57 Last Admin: 08/25/17 07:01 Dose: Not Given Metoprolol Succinate (Toprol Xl) 50 mg PO DAILY TELMA Morphine Sulfate (Morphine) 2 mg IVPUSH Q2H PRN PRN Reason: Pain (severe 7-10) Last Admin: 08/25/17 03:11 Dose: 2 mg Ondansetron HCl (Zofran) 4 mg IVPUSH ONETIME ONE Stop: 08/24/17 20:35 Last Admin: 08/24/17 20:38 Dose: 4 mg Ondansetron HCl (Zofran) Confirm Administered Dose 4 mg .ROUTE .STK-MED ONE Stop: 08/24/17 20:36 Last Admin: 08/24/17 20:41 Dose: Not Given Ondansetron HCl (Zofran) 4 mg IV Q6H PRN PRN Reason: Nausea/Vomiting Last Admin: 08/25/17 12:50 Dose: 4 mg Sodium Chloride (Normal Saline) 50 ml FLUSH ONETIME ONE Stop: 08/24/17 21:21 Last Admin: 08/24/17 21:38 Dose: 50 ml - Exam Physical Findings Comments:: GENERAL: Adult white male sitting in bedside chair in no acute distress. HEENT: Normocephalic, atraumatic. Conjunctiva clear. CV: Regular rate and rhythm, no murmurs, rubs, or gallops. 2+ radial pulses. PULMONARY: Normal effort, clear to auscultation bilaterally, no wheezes, rales, or rhonchi. ABDOMEN: Positive bowel sounds in all 4 quadrants, soft, nondistended, mild tenderness to palpation in lower quadrants without guarding/rigidity/rebound. Incision of mid abdomen clean and dry with emily in place. EXTREMITIES: No edema, cyanosis, or clubbing. MUSCULOSKELETAL: Moves all extremities well. NEUROLOGICAL: No obvious deficits. DERMATOLOGIC: No rashes or suspicious lesions in exposed areas. PSYCHIATRIC: Alert, interactive, appropriate affect. - Problem List Review Problem List Initiated/Reviewed/Updated: Yes - My Orders Last 24 Hours: My Active Orders 08/25/17 16:21 Ondansetron [Zofran] 4 mg IV Q4H PRN 08/25/17 19:37 Promethazine [Phenergan] 6.25 mg Sodium Chloride 0.9% [Normal Saline] 50 ml IV Q4H 08/25/17 Dinner NPO [Nothing Per Oral Diet] [DIET] 08/26/17 13:18 Vital Signs [RC] Q8H - Plan Plan:: Mr. Parry is a 57yoM with a history significant for multiple abdominal surgeries including ventral hernia repair on 08/16/17, Crohn's disease, and CAD , who developed acute abdominal pain on 08/24/17. Evaluation in the ED significant for CT A/P with findings of partial mid small bowel obstruction as well as postsurgical changes in the region of the umbilicus with edema/fat stranding of small fat-containing hernias and small amount of soft tissue gas likely related to recent surgery. He was admitted for inpatient management for small bowel obstruction. # Small bowel obstruction No evidence of infection or electrolyte imbalance on admission or repeat laboratory studies this morning. Symptomatically improved with bowel rest and IVF as needed antiemetics, but had worsening with attempt to advance to clear liquids on 08/25/17. He denies having passed flatus this morning, but has active bowel sounds and reassuring abdominal examination. Will proceed with sips of water and ice chips and monitor clinical status with hope to advance diet if passing flatus and having improvement in pain and nausea. Encourage ambulation. Continue monitoring I/O and will plan to decrease IVF when tolerating oral intake. If not continuing to improve, will consult with general surgery for consideration of surgical exploration. # S/p ventral hernia repair with residual small fat-containing hernias Symptomatically was doing quite well post-operatively until last evening when SBO developed. Incision site doing well without evidence of infection. Will continue to monitor clinically. # Crohn's disease S/p bowel resection in the . Recently well controlled on [employer]. Likely contribution of adhesions and current small bowel obstruction. # Eosinophilia Not previously noted on differential. Asymptomatic. Reassess in the future. Chronic conditions: # CAD/HTN/HLD: Stable. Restart ASA, metoprolol, and atorvastatin once tolerating oral intake. # Arthritis: Stable. Uses occasional ibuprofen at home, which is being held in the setting of SBO. Hospitalization details: # FEN: LR @ 125cc/hr, as above. Electrolytes normal. Advance diet when clinically indicated, as above. # PPX: Low risk for DVT, so will use SCDs and frequent ambulation. # Code status: FULL. # Emergency contact: Mer . # Disposition: Continue in inpatient status for management of small bowel obstruction.
[2017-08-27] MEDS: Lactated Ringers 1,000 ML IV SCH ×2 (00:09→08:07)
[2017-08-27] MEDS: Ondansetron 4 MG/2 ML SDV IV PRN (06:55)
[2017-08-27 08:47] VITALS: BP 141/104
[2017-08-27] MEDS ORDERED: methylPREDNISolone Sodium Succinate 125 MG/2 ML SDV IVPUSH ONE (09:07)
[2017-08-27] MEDS ORDERED: Metoclopramide 10 MG/2 ML SDV IVPUSH SCH ×3 (09:15→16:00)
[2017-08-27] MEDS ORDERED: Metoprolol Succinate 50 MG Tab.ER PO SCH (09:15)
[2017-08-27] MEDS: Sodium Chloride 0.9% 5 ML Syringe FLUSH PRN (09:31)
--- NOTE | 2017-08-27 12:46 | PCM.DCSUM1 ---
Discharge Summary - Hospital Course Free Text/Narrative:: Date of admission: 08/24/17 Date of discharge: 08/27/17 Admission diagnoses: 1. Small bowel obstruction 2. S/p ventral hernia repair 3. Crohn's disease 4. Eosinophilia Discharge diagnoses: 1. Small bowel obstruction 2. S/p ventral hernia repair 3. Crohn's disease 4. Eosinophilia Consultations: [facility] General Surgery, Dr. Mckenna Walker Procedures: None Hospital course: Mr. Parry is a 57yoM with a history significant for multiple abdominal surgeries including ventral hernia repair with mesh by Dr. Mulugeta Espinoza on , Crohn's disease, and CAD, who developed acute abdominal pain on 08/24/17. Evaluation in the ED significant for CT A/P with findings of partial mid small bowel obstruction as well as postsurgical changes in the region of the umbilicus with edema/fat stranding of small fat-containing hernias and small amount of soft tissue gas likely related to recent surgery. He was admitted for inpatient management for small bowel obstruction in the setting of recent ventral hernia repair. He has had no evidence of infection or electrolyte imbalance on admission or repeat laboratory studies. He symptomatically improved with bowel rest and IVF in addition to as needed antiemetics and analgesics, but had has intermittent worsening with attempts to advance diet despite active bowel sounds and passing flatus. Discussed patient's care with [facility] General Surgery Dr. Mckenna Walker who discussed the likely necessity of ongoing conservative management, but accepted him for transport due to ability to obtain small bowel follow- through and proceed with surgical intervention if needed. I discussed this with the patient and he would like to be transferred to higher level of care for these services. # Crohn's disease S/p bowel resection in the . Recently well controlled on [employer]. Likely contribution of adhesions and current small bowel obstruction. He was given one dose of SoluMedrol 125mg on 08/27/17. # Eosinophilia Not previously noted on differential. Asymptomatic. Reassess in the future. Chronic conditions: # CAD/HTN/HLD: Stable. Continue metoprolol with sips of water. Restart ASA and atorvastatin once tolerating oral intake. # Arthritis: Stable. Uses occasional ibuprofen at home, which is being held in the setting of SBO. Hospitalization details: # FEN: LR @ 125cc/hr. Electrolytes normal. Advance diet when clinically indicated, as above. # PPX: Low risk for DVT = SCDs and frequent ambulation. # Code status: FULL. # Emergency contact: Mer . # Disposition: Transfer by non-urgent ground ambulance to [facility] for management of small bowel obstruction. - Discharge Data Discharge Date: 08/27/17 Discharge Disposition: DC/Tfer to Acute Hospital 02 Condition: Fair - Patient Instructions Diet: Clear Liquid Diet Activity: As Tolerated Wound/Incision Care: Keep Operative Site/Wound Site Clean and Dry, Change Dressing Daily - Discharge Plan Home Medications: Home Meds Folic Acid 400 mcg PO DAILY 09/10/13 [History] Metoprolol Succinate [Toprol XL 50mg] 50 mg PO DAILY 09/10/13 [History] atorvaSTATin Calcium [Atorvastatin Calcium] 40 mg PO DAILY 09/10/13 [History] Aspirin [Halfprin] 81 mg PO DAILY 09/26/13 [History] Cholecalciferol (Vitamin D3) [Vitamin D3] 4,000 unit PO DAILY 09/26/13 [History] InFLIXimab [Remicade] 500 mg IV ASDIRECTED 09/26/13 [History] Nitroglycerin [Nitrostat] 0.4 mg SL ONETIME PRN 09/26/13 [History] Ibuprofen 200 - 600 mg PO TID PRN 08/15/17 [History] Referrals: Joy Espinoza MD [Primary Care Provider] - - Discharge Summary/Plan Comment DC Time >30 min.: Yes - General Info Admission Dx/Problem (Free Text: Small bowel obstruction Subjective Update: Since yesterday morning, diet was advanced to clear liquids, but he had recurring nausea this morning again requiring IV antiemetics. Pain is overall better than admission, but continues in waves of lower abdominal cramping. Passing intermittent flatus again today, but no stool output thus far. Ambulating without difficulty. He denies any new symptoms, including fever, chills, chest pain, shortness of breath, localized abdominal pain, dysuria, or incisional complaints. He is concerned about being able to make it to his mother 's next Monday. No nursing concerns. - Patient Data Vitals - Most Recent: Last Vital Signs Temp 36.8 C 08/27/17 07:00 Pulse 66 08/27/17 09:30 Resp 20 08/27/17 07:00 BP 141/104 H 08/27/17 09:30 Pulse Ox 95 08/27/17 07:00 Weight - Most Recent: 94.347 kg I&O - Last 24 hours: Intake & Output 08/26/17 08/27/17 08/27/17 22:59 06:59 14:59 Intake Total 1481 1063 Output Total 1500 700 Balance -19 363 ANALISA Results - Last 24 hrs: Microbiology 08/24/17 22:50 Wound Culture - Final Abdomen - Incision Staphylococcus Coagulase Neg Med Orders - Current: Current Medications Hydromorphone HCl (Dilaudid) 1 mg IVPUSH Q4H PRN PRN Reason: Pain Last Admin: 08/26/17 08:53 Dose: 1 mg Lactated Ringer's (Ringers, Lactated) 1,000 mls @ 125 mls/hr IV ASDIRECTED [facility] Last Admin: 08/27/17 08:07 Dose: 125 mls/hr Metoclopramide HCl (Reglan) 10 mg IVPUSH Q6H [facility] Metoprolol Succinate (Toprol Xl) 50 mg PO DAILY [facility] Last Admin: 08/27/17 09:30 Dose: 50 mg Ondansetron HCl (Zofran) 4 mg IV Q4H PRN PRN Reason: Nausea/Vomiting Last Admin: 08/27/17 06:55 Dose: 4 mg Sodium Chloride (Syrex Flush) 5 ml FLUSH Q8HR PRN PRN Reason: Keep Vein Open Last Admin: 08/27/17 09:31 Dose: 5 ml Discontinued Medications Hydromorphone HCl (Dilaudid) 1 mg IVPUSH ONETIME ONE Stop: 08/24/17 20:35 Last Admin: 08/24/17 22:21 Dose: 1 mg Hydromorphone HCl (Dilaudid) Confirm Administered Dose 1 mg .ROUTE .STK-MED ONE Stop: 08/24/17 20:36 Last Admin: 08/24/17 20:41 Dose: Not Given Hydromorphone HCl (Dilaudid) 1 mg IVPUSH ONETIME ONE Stop: 08/24/17 22:24 Last Admin: 08/24/17 23:54 Dose: Not Given Sodium Chloride (Normal Saline) 1,000 mls @ 999 mls/hr IV .BOLUS ONE Stop: 08/24/17 21:34 Last Admin: 08/24/17 20:49 Dose: 999 mls/hr Promethazine HCl 6.25 mg/ (Sodium Chloride) 50.25 mls @ 200 mls/hr IV Q4H PRN PRN Reason: Nausea/Vomiting Last Admin: 08/25/17 20:05 Dose: 200 mls/hr Iopamidol (Isovue-300 (61%)) 100 ml IVPUSH ONETIME ONE Stop: 08/24/17 21:36 Last Admin: 08/24/17 21:39 Dose: 99 ml Ketorolac Tromethamine (Toradol) 30 mg IVPUSH ONETIME ONE Stop: 08/25/17 06:55 Last Admin: 08/25/17 07:00 Dose: 30 mg Ketorolac Tromethamine (Toradol) Confirm Administered Dose 30 mg .ROUTE .STK- MED ONE Stop: 08/25/17 06:57 Last Admin: 08/25/17 07:01 Dose: Not Given Methylprednisolone Sodium Succinate (Solu-Medrol) 125 mg IVPUSH ONETIME ONE Stop: 08/27/17 09:08 Last Admin: 08/27/17 09:30 Dose: 125 mg Metoclopramide HCl (Reglan) 10 mg IVPUSH Q6H [facility] Stop: 08/27/17 09:31 Last Admin: 08/27/17 09:31 Dose: 10 mg Metoprolol Succinate (Toprol Xl) 50 mg PO DAILY [facility] Morphine Sulfate (Morphine) 2 mg IVPUSH Q2H PRN PRN Reason: Pain (severe 7-10) Last Admin: 08/25/17 03:11 Dose: 2 mg Ondansetron HCl (Zofran) 4 mg IVPUSH ONETIME ONE Stop: 08/24/17 20:35 Last Admin: 08/24/17 20:38 Dose: 4 mg Ondansetron HCl (Zofran) Confirm Administered Dose 4 mg .ROUTE .STK-MED ONE Stop: 08/24/17 20:36 Last Admin: 08/24/17 20:41 Dose: Not Given Ondansetron HCl (Zofran) 4 mg IV Q6H PRN PRN Reason: Nausea/Vomiting Last Admin: 08/25/17 12:50 Dose: 4 mg Sodium Chloride (Normal Saline) 50 ml FLUSH ONETIME ONE Stop: 08/24/17 21:21 Last Admin: 08/24/17 21:38 Dose: 50 ml - Exam Physical Findings Comments:: GENERAL: Adult white male sitting in bedside chair in no acute distress. HEENT: Normocephalic, atraumatic. Conjunctiva clear. CV: Regular rate and rhythm, no murmurs, rubs, or gallops. 2+ radial pulses. PULMONARY: Normal effort, clear to auscultation bilaterally, no wheezes, rales, or rhonchi. ABDOMEN: Positive bowel sounds in all 4 quadrants, soft, mildly distended, mild tenderness to palpation in lower quadrants without guarding/rigidity/rebound. Incision of mid abdomen clean and dry with emily in place. EXTREMITIES: No edema, cyanosis, or clubbing. MUSCULOSKELETAL: Moves all extremities well. NEUROLOGICAL: No obvious deficits. DERMATOLOGIC: No rashes or suspicious lesions in exposed areas. PSYCHIATRIC: Alert, interactive, appropriate affect. *Q Meaningful Use (DIS) - VTE *Q VTE Criteria *Q: - Stroke *Q Stroke Criteria *Q: - AMI *Q AMI Criteria *Q:
== END 2017-08-27 14:15 | DRG 389 ==
LOC: KA.ED 20:00 → KA.MS 22:21
PROVIDERS: ADMIT Physician Assistant Surgical; ATTEND Family Medicine
DX: K56.609 Unspecified intestinal obstruction, unspecified as to partial versus complete obstruction (principal); K50.90 Crohn's disease, unspecified, without complications; D72.1 Eosinophilia; I25.10 Atherosclerotic heart disease of native coronary artery without angina pectoris; Z98.890 Other specified postprocedural states; I10 Essential (primary) hypertension; M19.90 Unspecified osteoarthritis, unspecified site; E78.5 Hyperlipidemia, unspecified; Z79.899 Other long term (current) drug therapy; Z88.8 Allergy status to other drugs, medicaments and biological substances
CPT/HCPCS: 36415; 74177; 80053; 85025; 86140; 87070; 96361; 96374; 96375; 99285; A9270-GY; J1170; J1885; J2270; J2405; J2550; J2765; J2930; J7030; J7050; J7120; Q9967

== ENCOUNTER 2020-10-23 08:12 | Observation (INO) | payer OTHER ==
[2020-10-23] MEDS: Aspirin 81 MG Tab.Chew ONE (08:40)
[2020-10-23] MEDS: Aspirin 81 MG Tab.Chew PO ONE (08:40)
--- NOTE | 2020-10-23 09:04 | CR ---
[id number] RAD/RAD Chest PA And Lateral EXAM: FRONTAL AND LATERAL CHEST INDICATION: CHEST PAIN. COMPARISON: September 28, 2013. DISCUSSION: 6 mm nodular opacity in the right lung base, nipple shadow versus nodule in the right lung base. Consider repeat with nipple markers or chest CT for further evaluation. Mild hyperinflation. No acute infiltrates. Normal heart size. IMPRESSION: 1. Nipple shadow versus right lower lobe nodule. Consider repeat views with nipple markers or chest CT. Jose A Mathew MD 10/23/20 0903 Thank you for allowing us to participate in the care of your patient.
[2020-10-23] MEDS: Nitroglycerin 0.4 MG Tab.SL SL ONE (09:05)
[2020-10-23 09:08] LABS: ANION GAP 11.2 mmol/L (5-15); CHLORIDE,CL 107 mmol/L (98-107); SODIUM,NA 145 mmol/L (136-145)
--- NOTE | 2020-10-23 09:22 | EDM.PDOC ---
ED HPI GENERAL MEDICAL PROBLEM - General Chief Complaint: Cardiovascular Problem Stated Complaint: chest pain Time Seen by Provider: 10/23/20 08:45 Source of Information: Reports: Patient History Limitations: Reports: No Limitations - History of Present Illness INITIAL COMMENTS - FREE TEXT/NARRATIVE: 60yo male presents to the emergency room with complaints of chest pain and rac ing heart. Patient had onset of chest pain and tachycardia this morning at approximately 4 AM. He felt like his heart was racing. He took his pulse and it was running in the 120s. This lasted for about an hour. He continues to report pain just to the left chest and shoulder blade. States this is a mild ache rating it a 2 out of 10. He had a similar episode of chest pain without the racing heart over and was seen and evaluated in the emergency room in [place]. He was placed on a blood pressure medication he believes about 30 days and then was discontinued thereafter. He has had a stent placed about 5 years ago. He has a history of high hypertension and is on lisinopril and metoprolol. He takes a statin for cholesterol and has known coronary artery disease. He denies previous MT. He is not experiencing any nausea or vomiting. He is not diaphoretic. He did not take any nitro. His blood pressure has been elevated recently and is running in the 150s over 90s. He was given 4 chewable aspirin upon admission an EKG showed a normal sinus rhythm twelve-lead. He has not had a stress test recently. He has not had a follow-up with cardiology since his previous occurrence this . He sees Dr. Joy Gaines for his Crohn's. Onset: Today Onset Date: 10/23/20 Onset Time: 04:00 Duration: Improving Location: Reports: Chest Quality: Reports: Ache Severity: Mild Improves with: Reports: Rest Worsens with: Reports: None Associated Symptoms: Reports: Chest Pain. Denies: Cough, Diaphoresis, Fever/Chills, Headaches, Nausea/Vomiting, Shortness of Breath, Syncope, Weakness - Related Data Allergies Allergy/AdvReac Type Severity Reaction Status Date / Time azathioprine sodium Allergy Cannot Verified 09/23/20 09:08 [From Imuran] Remember Sulfa (Sulfonamide Allergy Cannot Verified 09/23/20 09:08 Antibiotics) Remember Home Meds: Home Meds Metoprolol Succinate [Toprol XL 50mg] 50 mg PO DAILY 09/10/13 [History] atorvaSTATin Calcium [Atorvastatin Calcium] 40 mg PO DAILY 09/10/13 [History] Aspirin [Halfprin] 81 mg PO DAILY 09/26/13 [History] InFLIXimab [Remicade] 750 mg IV ASDIRECTED 09/26/13 [History] Nitroglycerin [Nitrostat] 0.4 mg SL ASDIRECTED PRN 09/26/13 [History] Ibuprofen 600 mg PO TID PRN 08/15/17 [History] Lisinopril 5 mg PO DAILY 12/27/18 [History] Acetaminophen 650 mg PO Q4H PRN 10/23/20 [History] Benzonatate 200 mg PO TID PRN 10/23/20 [History] Calcium Carbonate [Tums] 1,000 mg PO Q4H PRN 10/23/20 [History] Cholecalciferol (Vitamin D3) [Vitamin D3] 2,000 unit PO DAILY 10/23/20 [History] Meclizine [Antivert] 12.5 mg PO Q8H PRN 10/23/20 [History] Past Medical History HEENT History: Reports: Impaired Vision Cardiovascular History: Reports: Angina, Stents Respiratory History: Reports: Other (See Below) Other Respiratory History: Hospitalized for PNeu Oct 2016 x 3days Gastrointestinal History: Reports: Bowel Obstruction, Inflammatory Bowel Disease, Other (See Below) Other Gastrointestinal History: Pt has crohn's which is controlled with remicade infusions. He had a ventral hernia repair on 08-16-17 with post-op SBO on 08-24-17. Musculoskeletal History: Reports: None Neurological History: Reports: Concussion Hematologic History: Reports: Iron Deficiency Immunologic History: Reports: Immunosuppression - Infectious Disease History Infectious Disease History: Reports: Chicken Pox, Shingles - Past Surgical History HEENT Surgical History: Reports: None Cardiovascular Surgical History: Reports: Coronary Artery Stent Other Cardiovascular Surgeries/Procedures: November 2012 Respiratory Surgical History: Reports: None GI Surgical History: Reports: Cholecystectomy, Colostomy, Hernia Repair/Other, Other (See Below) Other GI Surgeries/Procedures: perforated bowel with colostomy and colostomy reversal 1992, Ventral hernia repair on 08-16-17. Neurological Surgical History: Reports: None Musculoskeletal Surgical History: Reports: Knee Replacement, Other (See Below) Other Musculoskeletal Surgeries/Procedures:: Left Knee replaced Sep 17 2015 Social & Family History - Family History Family Medical History: No Pertinent Family History - Caffeine Use Caffeine Use: Reports: None ED ROS GENERAL - Review of Systems Review Of Systems: See Below Constitutional: Reports: No Symptoms HEENT: Reports: No Symptoms Respiratory: Reports: No Symptoms Cardiovascular: Reports: Chest Pain, Blood Pressure Problem, Palpitations Endocrine: Reports: No Symptoms GI/Abdominal: Reports: No Symptoms : Reports: No Symptoms Musculoskeletal: Reports: Shoulder Pain (left shoulder this am) Skin: Reports: No Symptoms Neurological: Reports: No Symptoms Psychiatric: Reports: No Symptoms Hematologic/Lymphatic: Reports: No Symptoms Immunologic: Reports: No Symptoms ED EXAM, GENERAL - Physical Exam Exam: See Below Exam Limited By: No Limitations General Appearance: Alert, WD/WN, No Apparent Distress Eye Exam: Bilateral Eye: EOMI Ears: Hearing Grossly Normal Nose: Normal Inspection Throat/Mouth: Normal Inspection, Normal Voice, No Airway Compromise Head: Atraumatic, Normocephalic Neck: Normal Inspection, Supple, Non-Tender, Full Range of Motion Respiratory/Chest: No Respiratory Distress, Lungs Clear, Normal Breath Sounds Cardiovascular: Normal Peripheral Pulses, Regular Rate, Rhythm, No Edema Peripheral Pulses: 2+: Dorsalis Pedis (L), Dorsalis Pedis (R) GI/Abdominal: Normal Bowel Sounds, Soft, Non-Tender, Hernia (Umbilical), Other (Midline abdominal well-healed incision from previous emergent surgery for perforated bowel) Back Exam: Normal Inspection Extremities: Normal Inspection, Normal Range of Motion, No Pedal Edema Neurological: Alert, Oriented, CN II-XII Intact, Normal Cognition, No Motor/Sensory Deficits Psychiatric: Normal Affect, Normal Mood Skin Exam: Warm, Dry, Intact, Normal Color, No Rash Lymphatic: No Adenopathy #1 Interpretation EKG Date: 10/23/20 Time: 08:45 Rhythm: NSR Rate (Beats/Min): 64 [place]: Normal P-Wave: Present QRS: Normal ST-T: Normal QT: Normal Comparison: NA - No Prior EKG EKG Interpretation Comments: Normal sinus rhythm normal ECG Course - Vital Signs Last Recorded V/S: Last Vital Signs Temp 97.2 F 10/23/20 08:15 Pulse 61 10/23/20 09:39 Resp 14 10/23/20 09:39 BP 137/88 10/23/20 09:39 Pulse Ox 95 10/23/20 09:39 - Orders/Labs/Meds Orders: Active Orders 24 hr Category Date Time Status EKG Documentation Completion [RC] ASDIRECTED Care 10/23/20 08:33 Active EKG 12 Lead [EK] Stat Ther 10/23/20 08:33 Ordered Medication Orders Acetaminophen (Tylenol) 650 mg PO Q4H PRN PRN Reason: analgesia/fever Labs: Laboratory Tests 10/23/20 10/23/20 Range/Units 08:40 08:40 WBC 5.15 (5.00-10.00) 10^3/uL RBC 4.63 (4.50-6.00) 10^6/uL Hgb 14.1 (13.0-17.0) g/dL Hct 41.3 (40.0-52.0) % MCV 89.2 (82.0-92.0) fL MCH 30.5 (27.0-31.0) pg MCHC 34.1 (32.0-36.0) g/dL RDW 13.6 (11.5-14.5) % Plt Count 252 (150-400) 10^3/uL MPV 9.3 (7.4-10.4) fL Immature Gran % (Auto) 0.2 (0.0-5.0) % Neut % (Auto) 53.8 (50.0-70.0) % Lymph % (Auto) 30.1 (20.0-40.0) % [place] % (Auto) 10.5 H (2.0-8.0) % Eos % (Auto) 5.0 H (1.0-3.0) % Baso % (Auto) 0.4 (0.0-1.0) % Neut # (Auto) 2.77 (2.50-7.00) 10^3/uL Lymph # (Auto) 1.55 (1.00-4.00) 10^3/uL [place] # (Auto) 0.54 (0.10-0.80) 10^3/uL Eos # (Auto) 0.26 (0.10-0.30) 10^3/uL Baso # (Auto) 0.02 (0.00-0.10) 10^3/uL Immature Gran # (Auto) 0.01 (0.00-0.50) 10^3/uL Sodium 145 (136-145) mmol/L Potassium 4.0 (3.5-5.1) mmol/L Chloride 107 (98-107) mmol/L Carbon Dioxide 30.8 (21.0-32.0) mmol/L Anion Gap 11.2 (5-15) mmol/L BUN 21 H (7-18) mg/dL Creatinine 0.90 (0.51-1.17) mg/dL Est Cr Clr Drug Dosing 98.64 mL/min Estimated GFR (MDRD) > 60 mL/min Glucose 79 (70-140) mg/dL Calcium 8.8 (8.7-10.3) mg/dL Troponin I < 0.017 (0.000-0.056) ng/mL Meds: Medications Generic Name Dose Route Start Last Admin Trade Name Freq PRN Reason Stop Dose Admin Acetaminophen 650 mg 10/23/20 09:42 Tylenol PO Q4H PRN analgesia/fever Discontinued Medications Generic Name Dose Route Start Last Admin Trade Name Freq PRN Reason Stop Dose Admin Aspirin Confirm 10/23/20 08:29 10/23/20 08:40 Aspirin Administered 10/23/20 08:30 Not Given Dose 324 mg .ROUTE .STK-MED ONE Aspirin 324 mg 10/23/20 08:35 10/23/20 08:40 Aspirin PO 10/23/20 08:36 324 mg ONETIME ONE Administration Nitroglycerin Confirm 10/23/20 09:04 Nitrostat Administered 10/23/20 09:05 Dose 0.4 mg .ROUTE .STK-MED ONE - Radiology Interpretation Free Text/Narrative:: Chest radiograph 2 view Comparison: September 28, 2013 Discussion: 6 mm nodular opacity in the right lung base nipple shadow versus nodule in the right lung base. Consider repeat with nipple markers or chest CT for further evaluation. Mild hyperinflation. No acute infiltrates. Normal heart size. Impression: Nipple shadow versus right lower lobe nodule. Consider repeat views with nipple markers or chest CT. - Re-Assessments/Exams Free Text/Narrative Re-Assessment/Exam: 10/23/20 10:39 And is stable. Patient still rates his pain a 1 or 2 out of 10. Departure - Departure Time of Disposition: 10:35 Disposition: Refer to Observation Condition: Good Clinical Impression: Angina pectoris without myocardial infarction Sepsis Event Note (ED) - Evaluation Sepsis Screening Result: No Definite Risk - Focused Exam Vital Signs: Vital Signs Temp Pulse Resp BP Pulse Ox 10/23/20 09:39 61 14 137/88 95 10/23/20 08:15 97.2 F 68 14 166/111 H 98 - My Orders Last 24 Hours: My Active Orders 10/23/20 08:33 EKG Documentation Completion [RC] ASDIRECTED EKG 12 Lead [EK] Stat - Assessment/Plan Last 24 Hours: My Active Orders 10/23/20 08:33 EKG Documentation Completion [RC] ASDIRECTED EKG 12 Lead [EK] Stat Assessment:: Chest pain, angina Plan: 1. We will place patient in observation 2. Telemetry 3. Patient will need further work-up including stress testing and follow-up with cardiology. 4. [place] provider Ap Nguyen nurse practitioner will take over care for observational status.
[2020-10-23] MEDS ORDERED: Acetaminophen 325 MG Tab PO PRN ×2 (09:42→12:12)
[2020-10-23] MEDS ORDERED: Nitroglycerin 0.4 MG Tab.SL SL PRN ×2 (09:43→12:12)
[2020-10-23] MEDS ORDERED: Lidocaine 2% 100 MG/5 ML Syringe IVPUSH PRN (09:43)
[2020-10-23] MEDS ORDERED: EPINEPHrine 1:10,000 1 MG/10 ML Syringe IVPUSH PRN (09:43)
[2020-10-23] MEDS ORDERED: Atropine 0.1 MG/ML 10 ML Syringe IVPUSH PRN (09:43)
[2020-10-23] MEDS: Nitroglycerin 0.4 MG Tab.SL ONE (11:09)
[2020-10-23] MEDS: Alum Hydrox/Mag Hydrox/Simeth 30 ML, Lidocaine 2% 15 ML PO ONE ×2 (12:09)
[2020-10-23] MEDS ORDERED: Calcium Carbonate 500 MG Tab.Chew PO PRN (12:12)
--- NOTE | 2020-10-23 12:22 | PCM.HP.2 ---
H&P History of Present Illness - General Date of Service: 10/23/20 Admit Problem/Dx: Admission Diagnosis/Problem Admission Diagnosis/Problem Angina - Related Data Allergies/Adverse Reactions: Allergies Allergy/AdvReac Type Severity Reaction Status Date / Time azathioprine sodium Allergy Vomiting Verified 10/23/20 12:11 [From Imuran] Sulfa (Sulfonamide Allergy Itching Verified 10/23/20 12:11 Antibiotics) Home Medications: Home Meds Metoprolol Succinate [Toprol XL 50mg] 50 mg PO DAILY 09/10/13 [History] atorvaSTATin Calcium [Atorvastatin Calcium] 40 mg PO DAILY 09/10/13 [History] Aspirin [Halfprin] 81 mg PO DAILY 09/26/13 [History] InFLIXimab [Remicade] 750 mg IV ASDIRECTED 09/26/13 [History] Nitroglycerin [Nitrostat] 0.4 mg SL ASDIRECTED PRN 09/26/13 [History] Ibuprofen 600 mg PO TID PRN 08/15/17 [History] Lisinopril 5 mg PO DAILY 12/27/18 [History] Acetaminophen 650 mg PO Q4H PRN 10/23/20 [History] Benzonatate 200 mg PO TID PRN 10/23/20 [History] Calcium Carbonate [Tums] 1,000 mg PO Q4H PRN 10/23/20 [History] Cholecalciferol (Vitamin D3) [Vitamin D3] 2,000 unit PO DAILY 10/23/20 [History] Meclizine [Antivert] 12.5 mg PO Q8H PRN 10/23/20 [History] Past Medical History HEENT History: Reports: Impaired Vision Cardiovascular History: Reports: Angina, High Cholesterol, Hypertension, Stents Respiratory History: Reports: Other (See Below) Other Respiratory History: Hospitalized for PNeu Oct 2016 x 3days Gastrointestinal History: Reports: Bowel Obstruction, Inflammatory Bowel Disease, Other (See Below) Other Gastrointestinal History: Pt has crohn's which is controlled with remicade infusions. He had a ventral hernia repair on 08-16-17 with post-op SBO on 08-24-17. Genitourinary History: Reports: None Musculoskeletal History: Reports: None Neurological History: Reports: Concussion Psychiatric History: Reports: None Endocrine/Metabolic History: Reports: None Hematologic History: Reports: Iron Deficiency Immunologic History: Reports: Immunosuppression Oncologic (Cancer) History: Reports: None Dermatologic History: Reports: None - Infectious Disease History Infectious Disease History: Reports: Chicken Pox, Shingles - Past Surgical History HEENT Surgical History: Reports: Cataract Surgery Cardiovascular Surgical History: Reports: Coronary Artery Stent Other Cardiovascular Surgeries/Procedures: November 2012 Respiratory Surgical History: Reports: None GI Surgical History: Reports: Cholecystectomy, Colostomy, Hernia Repair/Other, Other (See Below) Other GI Surgeries/Procedures: perforated bowel with colostomy and colostomy reversal 1992, Ventral hernia repair on 08-16-17. Neurological Surgical History: Reports: None Musculoskeletal Surgical History: Reports: Knee Replacement, Other (See Below) Other Musculoskeletal Surgeries/Procedures:: Left Knee replaced Sep 17 2015. right wrist surgery about 40 yrs ago Social & Family History - Family History Family Medical History: No Pertinent Family History - Tobacco Use Tobacco Use Status *Q: Never Tobacco User Second Hand Smoke Exposure: Yes - Caffeine Use Caffeine Use: Reports: Energy Drinks, Soda - Recreational Drug Use Recreational Drug Use: No H&P Review of Systems - Review of Systems: Review Of Systems: See Below General: Reports: No Symptoms HEENT: Reports: No Symptoms Pulmonary: Reports: No Symptoms Cardiovascular: Reports: Chest Pain (Chest pain transverse across anterior chest), Other (Feels like something stuck in throat) Gastrointestinal: Reports: No Symptoms Genitourinary: Reports: No Symptoms Musculoskeletal: Reports: No Symptoms Skin: Reports: No Symptoms Psychiatric: Reports: No Symptoms Neurological: Reports: No Symptoms Hematologic/Lymphatic: Reports: No Symptoms Immunologic: Reports: Other (on DMARD) Exam - Exam Exam: See Below - Vital Signs Vital Signs: Last Vital Signs Temp 97.2 F 10/23/20 08:15 Pulse 61 10/23/20 09:39 Resp 14 10/23/20 09:39 BP 137/88 10/23/20 09:39 Pulse Ox 97 10/23/20 09:44 Weight: 209 lb 14.4 oz - Exam Quality Assessment: No: Supplemental Oxygen General: Alert, Oriented, Cooperative. No: Mild Distress HEENT: Mucosa Moist & [place] Neck: Supple Lungs: Clear to Auscultation, Normal Respiratory Effort Cardiovascular: Regular Rate, Regular Rhythm GI/Abdominal Exam: Normal Bowel Sounds, Soft (Male) Exam: Deferred Rectal (Males) Exam: Deferred Back Exam: No: CVA Tenderness (L) Extremities: No Pedal Edema. No: Slow Capillary Refill Peripheral Pulses: 2+: Radial (L), 3+: Radial (R) Skin: Warm, Dry, Intact Neurological: Cranial Nerves Intact, Reflexes Equal Bilateral Neuro Extensive - Mental Status: Alert, Oriented x3, Normal Mood/Affect, Normal Cognition Neuro Extensive - Motor, Sensory, Reflexes: CN II-XII Intact. No: Receptive Aphasia Psychiatric: Alert, Normal Affect, Normal Mood - Patient Data Lab Results Last 24 hrs: Laboratory Results - last 24 hr 10/23/20 10/23/20 10/23/20 Range/Units 08:40 08:40 09:45 WBC 5.15 (5.00-10.00) 10^3/uL RBC 4.63 (4.50-6.00) 10^6/uL Hgb 14.1 (13.0-17.0) g/dL Hct 41.3 (40.0-52.0) % MCV 89.2 (82.0-92.0) fL MCH 30.5 (27.0-31.0) pg MCHC 34.1 (32.0-36.0) g/dL RDW 13.6 (11.5-14.5) % Plt Count 252 (150-400) 10^3/uL MPV 9.3 (7.4-10.4) fL Immature Gran % (Auto) 0.2 (0.0-5.0) % Neut % (Auto) 53.8 (50.0-70.0) % Lymph % (Auto) 30.1 (20.0-40.0) % Morris % (Auto) 10.5 H (2.0-8.0) % Eos % (Auto) 5.0 H (1.0-3.0) % Baso % (Auto) 0.4 (0.0-1.0) % Neut # (Auto) 2.77 (2.50-7.00) 10^3/uL Lymph # (Auto) 1.55 (1.00-4.00) 10^3/uL Morris # (Auto) 0.54 (0.10-0.80) 10^3/uL Eos # (Auto) 0.26 (0.10-0.30) 10^3/uL Baso # (Auto) 0.02 (0.00-0.10) 10^3/uL Immature Gran # (Auto) 0.01 (0.00-0.50) 10^3/uL Sodium 145 (136-145) mmol/L Potassium 4.0 (3.5-5.1) mmol/L Chloride 107 (98-107) mmol/L Carbon Dioxide 30.8 (21.0-32.0) mmol/L Anion Gap 11.2 (5-15) mmol/L BUN 21 H (7-18) mg/dL Creatinine 0.90 (0.51-1.17) mg/dL Est Cr Clr Drug Dosing 98.64 mL/min Estimated GFR (MDRD) > 60 mL/min Glucose 79 (70-140) mg/dL Calcium 8.8 (8.7-10.3) mg/dL Troponin I < 0.017 (0.000-0.056) ng/mL SARS CoV-2 RNA Rapid ARELY Negative (NEGATIVE) Result Diagrams: 10/23/20 08:40 10/23/20 08:40 Sepsis Event Note - Evaluation Sepsis Screening Result: No Definite Risk - Focused Exam Vital Signs: Vital Signs Temp Pulse Resp BP BP Pulse Ox Pulse Ox 10/23/20 09:44 98 97 10/23/20 09:39 61 14 137/88 95 10/23/20 09:05 133/84 10/23/20 08:15 97.2 F 68 14 166/111 H 98 Problem List Initiated/Reviewed/Updated: Yes Orders Last 24hrs: Active Orders 24 hr Category Date Time Status Patient Status [ADT] Routine ADT 10/23/20 09:42 Active Antiembolic Devices [RC] .Routine Care 10/23/20 09:44 Active EKG Documentation Completion [RC] ASDIRECTED Care 10/23/20 08:33 Active Oxygen Therapy [RC] PRN Care 10/23/20 09:44 Active Pulse Oximetry [RC] PRN Care 10/23/20 09:44 Active VTE/DVT Education [RC] PER UNIT ROUTINE Care 10/23/20 09:44 Active Vital Signs [RC] 0300,0700,1100,1500,1900,2300 Care 10/23/20 09:42 Active Acetaminophen [TylenoL] Med 10/23/20 09:42 Active 650 mg PO Q4H PRN DVT/VTE Prophylaxis Reflex [OM.PC] Routine Oth 10/23/20 09:42 Ordered EKG 12 Lead [EK] Stat Ther 10/23/20 08:33 Ordered Medication Orders Acetaminophen (Tylenol) 650 mg PO Q4H PRN PRN Reason: analgesia/fever Assessment/Plan Comment:: History of present illness 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 In the ED patient continues to have 2/10 pain just to the left chest and shoulder blade similar episode of chest pain without the racing heart over [place] and was seen and evaluated in the emergency room in [place]. He was placed on a blood pressure medication Amlodipine for ~ 3weeks then was discontinued thereafter. CV Hx; stent placed about 5 years ago. He has a history of high hypertension and is on lisinopril and metoprolol. He takes a statin for cholesterol and has known coronary artery disease. He denies previous [place]. Denes N/V or diaphoresis. He did not take any nitro. Denotes BP elevated recently and ~150s/90's ED course: --ECG: NSR --CXR, quesion nodule opacity RLL --BP 166/111, HR 68 reg --ASA 325 --Electrolytes normal --Initial Trop normal Primary hospital problems Chest pain with rule out [place] Hypertension, recently uncontrolled, increase lisinopril 10 mg, creat normal Coronary artery disease, stents, ASA Hyperlipidemia, Non-HDL 129, fair Chronic/stable problems Crohn's disease Fatty liver disease Immunocompromised, 2/2 DMARD/crohn's Disposition/overall plan --Continue OBS/Telemetry status for serial troponin --GI cocktail x1 now --Increase lisinopril --Anticipate DC in am with need for stress test. - Mortality Measure Prognosis:: Good
[2020-10-23] MEDS: Lisinopril 5 MG Tab PO ONE (12:59)
[2020-10-23] MEDS: Morphine 2 MG/ML SYRINGE IVPUSH ONE (17:30)
[2020-10-23] MEDS: Ketorolac 30 MG/ML SDV IVPUSH PRN (21:18)
[2020-10-23] MEDS: Sodium Chloride 0.9% 10 ML Syringe FLUSH PRN (21:20)
[2020-10-24] MEDS: Lisinopril 10 MG Tab PO SCH (08:15)
[2020-10-24] MEDS: Metoprolol Succinate 50 MG Tab.ER PO SCH (08:15)
[2020-10-24] MEDS: Aspirin 81 MG Tab.EC PO SCH (08:15)
[2020-10-24] MEDS: atorvaSTATin 40 MG Tab PO SCH (08:15)
[2020-10-24 08:16] VITALS: BP 146/90; PULSE 67
--- NOTE | 2020-10-24 10:17 | PCM.DCSUM1 ---
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 Presented to the ED with complaints of chest pain and tachycardia. He states he had a onset of chest pain and tachycardia on 10/23/2020 at approximately 4 AM--Reg with HR ~120s but subsiding within an hour. In the ED patient continued to have 2/10 pain just to the left chest and shoulder blade similar episode of chest pain without the racing heart over [place] and was seen and evaluated in the emergency room in [place]. He was placed on a blood pressure medication Amlodipine for ~ 3weeks then was discontinued thereafter. CV Hx; stent placed about 5 years ago. He has a history of hypertension and is on lisinopril and metoprolol. He takes a statin for cholesterol and has known coronary artery disease. He denies previous [place]. Denes N/V or diaphoresis. He did not take nitro. Denotes BP elevated recently and ~150s/90's ED course: --ECG: NSR --CXR, quesion nodule opacity RLL --BP 166/111, HR 68 reg --ASA 325 --Electrolytes normal --Initial Trop normal 10/24/2020: Received call in evening 10/23/2020 that patient did have chest pain that was rated a 1-2/10. He reported that he also had neck pain and that he felt pain may be related to that. IV Toradol 30mg given with improvement of pain. No overnight telemetry concerns. Patient reports sleeping well and no further pain. Troponin has not trended up and has remained at 0.017. TSH was checked and at 0.761. Patient reports that he is ready for discharge home. Discharge and follow-up recommendations: - Discharge to home - New medications at discharge: - Increase lisinopril to 10mg daily - Follow-up on Monday10/26/2020 either in [place] or [place]. Recommend referral to cardiology with possible stress test as well as possible event monitor. Diagnosis: Stroke: No - Discharge Data Discharge Date: 10/24/20 Discharge Disposition: Home, Self-Care 01 Condition: Good - Referral to Home Health Primary Care Physician: Joy Espinoza MD - Patient Instructions Diet: Heart Healthy Diet Activity: As Tolerated Notify Provider of: Increased Pain, Nausea and/or Vomiting Other/Special Instructions: Notify if chest pain returns or heart racing begins again. - Discharge Plan *PRESCRIPTION DRUG MONITORING PROGRAM REVIEWED*: Not Applicable *COPY OF PRESCRIPTION DRUG MONITORING REPORT IN PATIENT MIGEL: Not Applicable Home Medications: Home Meds Metoprolol Succinate [Toprol XL 50mg] 50 mg PO DAILY 09/10/13 [History] atorvaSTATin Calcium [Atorvastatin Calcium] 40 mg PO DAILY 09/10/13 [History] Aspirin [Halfprin] 81 mg PO DAILY 09/26/13 [History] InFLIXimab [Remicade] 750 mg IV ASDIRECTED 09/26/13 [History] Nitroglycerin [Nitrostat] 0.4 mg SL ASDIRECTED PRN 09/26/13 [History] Ibuprofen 600 mg PO TID PRN 08/15/17 [History] Acetaminophen 650 mg PO Q4H PRN 10/23/20 [History] Benzonatate 200 mg PO TID PRN 10/23/20 [History] Calcium Carbonate [Tums] 1,000 mg PO Q4H PRN 10/23/20 [History] Cholecalciferol (Vitamin D3) [Vitamin D3] 2,000 unit PO DAILY 10/23/20 [History] Meclizine [Antivert] 12.5 mg PO Q8H PRN 10/23/20 [History] lisinopriL [Prinivil] 10 mg PO DAILY tablet 10/24/20 [Rx] Referrals: Joy Espinoza MD [Primary Care Provider] - (Follow up on Monday (10/26/2020) in clinic with provider of choice) - Discharge Summary/Plan Comment DC Time >30 min.: Yes - General Info Date of Service: 10/24/20 Subjective Update: 60 year old male sitting in chair reports resolution of chest pain. Does have some neck pain, but the Toradol did help. He reports he is ready for discharge home. - Review of Systems General: Denies: Fever, Fatigue, Chills HEENT: Reports: Glasses. Denies: Headaches, Sore Throat Pulmonary: Denies: Shortness of Breath, Cough, Wheezing Cardiovascular: Denies: Chest Pain, Palpitations, Edema Gastrointestinal: Denies: Abdominal Pain, Constipation, Diarrhea, Nausea, Vomiting Genitourinary: Denies: Dysuria, Urgency, Hematuria Musculoskeletal: Reports: Neck Pain (improved). Denies: Back Pain, Joint Swelling Skin: Denies: Jaundice, Pallor, Bruising Neurological: Denies: Confusion, Headache, Trouble Speaking, Difficulty Walking Psychiatric: Denies: Depression, Mood Lability, Anxiety - Patient Data Vitals - Most Recent: Last Vital Signs Temp 36.1 C 10/24/20 06:25 Pulse 67 10/24/20 08:15 Resp 20 10/24/20 06:25 BP 146/90 H 10/24/20 08:15 Pulse Ox 95 10/24/20 06:25 Weight - Most Recent: 95.209 kg I&O - Last 24 hours: Intake & Output 10/23/20 10/24/20 10/24/20 22:59 06:59 14:59 Intake Total 1160 0 Balance 1160 0 Lab Results - Last 24 hrs: Laboratory Results - last 24 hr 10/23/20 10/23/20 10/24/20 Range/Units 14:30 20:00 07:12 Troponin I < 0.017 < 0.017 < 0.017 (0.000-0.056) ng/mL Med Orders - Current: Current Medications Acetaminophen (Tylenol) 650 mg PO Q4H PRN PRN Reason: mild pain Aspirin (Halfprin) 81 mg PO DAILY [facility] Last Admin: 10/24/20 08:15 Dose: 81 mg Documented by: Atorvastatin Calcium (Lipitor) 40 mg PO DAILY [facility] Last Admin: 10/24/20 08:15 Dose: 40 mg Documented by: Atropine Sulfate (Atropine 0.1 Mg/Ml) 0 mg IVPUSH ASDIRECTED PRN PRN Reason: Heart. Calcium Carbonate/Glycine (Tums) 1,000 mg PO Q4H PRN PRN Reason: Indigestion Epinephrine HCl (Epinephrine 1:10,000) 1 mg IVPUSH ASDIRECTED PRN PRN Reason: Heart. Ketorolac Tromethamine (Toradol) 30 mg IVPUSH Q8H PRN PRN Reason: pain Stop: 10/28/20 20:47 Last Admin: 10/23/20 21:18 Dose: 30 mg Documented by: Lidocaine HCl (Xylocaine 2%) 0 mg IVPUSH ASDIRECTED PRN PRN Reason: Heart. Lisinopril (Prinivil) 10 mg PO DAILY [facility] Last Admin: 10/24/20 08:15 Dose: 10 mg Documented by: Metoprolol Succinate (Toprol Xl) 50 mg PO DAILY [facility] Last Admin: 10/24/20 08:15 Dose: 50 mg Documented by: Nitroglycerin (Nitrostat) 0.4 mg SL ASDIRECTED PRN PRN Reason: Chest Pain Nitroglycerin (Nitrostat) 0.4 mg SL ASDIRECTED PRN PRN Reason: Heart. Sodium Chloride (Saline Flush) 10 ml FLUSH Q8HR PRN PRN Reason: keep vein open Last Admin: 10/23/20 21:20 Dose: 10 ml Documented by: Discontinued Medications Acetaminophen (Tylenol) 650 mg PO Q4H PRN PRN Reason: analgesia/fever Aspirin (Aspirin) Confirm Administered Dose 324 mg .ROUTE .STK-MED ONE Stop: 10/23/20 08:30 Last Admin: 10/23/20 08:40 Dose: Not Given Documented by: Aspirin (Aspirin) 324 mg PO ONETIME ONE Stop: 10/23/20 08:36 Last Admin: 10/23/20 08:40 Dose: 324 mg Documented by: Al Hydroxide/Mg Hydroxide 30 (ml/ Lidocaine HCl 15 ml) 0 ml PO ONETIME ONE Stop: 10/23/20 11:45 Last Admin: 10/23/20 12:09 Dose: 45 ml Documented by: Lisinopril (Prinivil) 5 mg PO ONETIME ONE Stop: 10/23/20 12:52 Last Admin: 10/23/20 12:59 Dose: 5 mg Documented by: Morphine Sulfate (Morphine) 2 mg IVPUSH ONETIME ONE Stop: 10/23/20 17:26 Last Admin: 10/23/20 17:30 Dose: 2 mg Documented by: Nitroglycerin (Nitrostat) Confirm Administered Dose 0.4 mg .ROUTE .STK-MED ONE Stop: 10/23/20 09:05 Last Admin: 10/23/20 11:09 Dose: Not Given Documented by: Nitroglycerin (Nitrostat) 0.4 mg SL ONETIME ONE Stop: 10/23/20 09:06 Last Admin: 10/23/20 09:05 Dose: 0.4 mg Documented by: - Exam Physical Findings Comments:: GENERAL: Well-appearing adult sitting up in chair with in room in no acute distress. HEENT: Normocephalic, atraumatic. Conjunctiva clear. Nares patent without discharge. Mucous membranes moist, posterior pharynx unremarkable. NECK: Supple, no masses. CV: Regular rate and rhythm, no murmurs, rubs, or gallops. 2+ radial pulses. PULMONARY: Normal effort, clear to auscultation bilaterally, no wheezes, rales, or rhonchi. ABDOMEN: Positive bowel sounds, soft, nontender, nondistended. EXTREMITIES: No edema, cyanosis, or clubbing. MUSCULOSKELETAL: Moves all extremities well. NEUROLOGICAL: No obvious deficits. DERMATOLOGIC: No rashes or suspicious lesions in exposed areas. PSYCHIATRIC: Alert, interactive, appropriate affect.
== END 2020-10-24 11:20 | disposition home or self-care (01) ==
LOC: KA.ED 08:12 → KA.MS 09:42
PROVIDERS: ADMIT Physician Assistant; ATTEND Nurse Practitioner Family
DX: R07.9 Chest pain, unspecified (principal); R00.0 Tachycardia, unspecified; E78.00 Pure hypercholesterolemia, unspecified; I10 Essential (primary) hypertension; I25.10 Atherosclerotic heart disease of native coronary artery without angina pectoris; E78.5 Hyperlipidemia, unspecified; K50.90 Crohn's disease, unspecified, without complications; K76.0 Fatty (change of) liver, not elsewhere classified; D84.9 Immunodeficiency, unspecified; Z20.822 Contact with and (suspected) exposure to COVID-19; Z88.8 Allergy status to other drugs, medicaments and biological substances; Z88.2 Allergy status to sulfonamides; Z79.899 Other long term (current) drug therapy; Z79.82 Long term (current) use of aspirin; Z98.890 Other specified postprocedural states; Z95.5 Presence of coronary angioplasty implant and graft; Z90.49 Acquired absence of other specified parts of digestive tract
CPT/HCPCS: 36415; 71046; 80048; 84443; 84484; 85025; 93005; 96374; 96375; 99284; 99285-25; A9270-GY; G0378; J1885; J2270; U0002

== ENCOUNTER 2021-07-02 21:01 | Emergency (ER) | payer OTHER ==
[2021-07-02] MEDS ORDERED: Sodium Chloride 0.9% 10 ML Syringe FLUSH PRN (21:07)
--- NOTE | 2021-07-02 21:07 | EDM.PDOC ---
ED HPI GENERAL MEDICAL PROBLEM - General Chief Complaint: Chest Pain Stated Complaint: CHEST PAIN Time Seen by Provider: 07/02/21 21:03 Source of Information: Reports: Patient, Family History Limitations: Reports: No Limitations - History of Present Illness INITIAL COMMENTS - FREE TEXT/NARRATIVE: Marlo, 61-year-old male, presents emergency department accompanied by his with chest pain he rates as a 7 or 8 on a scale of 10. Has been feeling malaise with some associated chest pain on and off, as well as headache, since last Monday where it worsened to the point where they presented to [facility] for Covid as well as influenza testing. He was notified both were negative this morning by phone call. Was hospitalized in October here for rule out [place] secondary of chest pain and had been seen by cardiology in September 2020 secondary of similar episodes to which he underwent angiogram which had minimal blockage, nothing that would contribute to his episodes. Cardiology is puzzled as no findings for cause of chest pain. He has had no recent change in medications. No additions for his hypertension are noted. Today he was seen at the clinic as he had headache and questioned his blood pressure, for evaluation of his blood pressure which was elevated but no changes at that time occurred secondary of his description of the history and the time of the event as it is been elevated and then to be repeated and found significantly lower within 10 to 15 minutes in the past. He has not taken any nitroglycerin on this event in the past 4 days. He has had prominent headache with nausea through the course of the 4 days and some associated aches and pains, which led to the influenza and Covid 19 screening. Onset Date: 06/29/21 Duration: Day(s):, Intermittent, Waxing/Waning Location: Reports: Head, Chest Quality: Reports: Ache, Pressure Severity: Moderate Improves with: Reports: Rest Worsens with: Reports: Movement (occasion) Associated Symptoms: Reports: Chest Pain, Headaches, Nausea/Vomiting Mid-Sternal Chest Pain Score (Numeric/FACES): 5 - Related Data Allergies Allergy/AdvReac Type Severity Reaction Status Date / Time azathioprine sodium Allergy Vomiting Verified 07/02/21 21:30 [From Imuran] Sulfa (Sulfonamide Allergy Itching Verified 07/02/21 21:30 Antibiotics) Home Meds: Home Meds Metoprolol Succinate [Toprol XL 50mg] 50 mg PO DAILY 09/10/13 [History] atorvaSTATin Calcium [Atorvastatin Calcium] 40 mg PO DAILY 09/10/13 [History] Aspirin [Halfprin] 81 mg PO DAILY 09/26/13 [History] InFLIXimab [Remicade] 750 mg IV ASDIRECTED 09/26/13 [History] Nitroglycerin [Nitrostat] 0.4 mg SL ASDIRECTED PRN 09/26/13 [History] Acetaminophen 650 mg PO Q4H PRN 10/23/20 [History] Benzonatate 200 mg PO TID PRN 10/23/20 [History] Calcium Carbonate [Tums] 1,000 mg PO Q4H PRN 10/23/20 [History] Cholecalciferol (Vitamin D3) [Vitamin D3] 2,000 unit PO DAILY 10/23/20 [History] Meclizine [Antivert] 12.5 mg PO Q8H PRN 10/23/20 [History] lisinopriL [Prinivil] 10 mg PO DAILY tablet 10/24/20 [Rx] Past Medical History HEENT History: Reports: Impaired Vision Cardiovascular History: Reports: Angina, High Cholesterol, Hypertension, Stents Respiratory History: Reports: Other (See Below) Other Respiratory History: Hospitalized for PNeu Oct 2016 x 3days Gastrointestinal History: Reports: Bowel Obstruction, Inflammatory Bowel Disease, Other (See Below) Other Gastrointestinal History: Pt has crohn's which is controlled with remicade infusions. He had a ventral hernia repair on 08-16-17 with post-op SBO on 08-24-17. Genitourinary History: Reports: None Musculoskeletal History: Reports: None Neurological History: Reports: Concussion Psychiatric History: Reports: None Endocrine/Metabolic History: Reports: None Hematologic History: Reports: Iron Deficiency Immunologic History: Reports: Immunosuppression Oncologic (Cancer) History: Reports: None Dermatologic History: Reports: None - Infectious Disease History Infectious Disease History: Reports: Chicken Pox, Shingles - Past Surgical History HEENT Surgical History: Reports: Cataract Surgery Cardiovascular Surgical History: Reports: Coronary Artery Stent Other Cardiovascular Surgeries/Procedures: November 2012 Respiratory Surgical History: Reports: None GI Surgical History: Reports: Cholecystectomy, Colostomy, Hernia Repair/Other, Other (See Below) Other GI Surgeries/Procedures: perforated bowel with colostomy and colostomy reversal 1992, Ventral hernia repair on 08-16-17. Neurological Surgical History: Reports: None Musculoskeletal Surgical History: Reports: Knee Replacement, Other (See Below) Other Musculoskeletal Surgeries/Procedures:: Left Knee replaced Sep 17 2015. right wrist surgery about 40 yrs ago Social & Family History - Family History Family Medical History: No Pertinent Family History - Tobacco Use Tobacco Use Status *Q: Never Tobacco User - Caffeine Use Caffeine Use: Reports: Energy Drinks, Soda ED ROS GENERAL - Review of Systems Review Of Systems: Comprehensive ROS is negative, except as noted in HPI. ED EXAM, GENERAL - Physical Exam Exam: See Below Free Text/Narrative:: Alert, oriented, with no cyanosis nor pallor noted. HEENT is negative discharge or deformity. PERRLA, no icterus nor injection. [place] moist mucous membranes. Neck is soft supple with no lymphadenopathy no JVD. Chest is clear with no wheezes no crackles. Cardiac is S1-S2 with no noted murmur. Abdomen is soft he has an umbilical hernia. There is no flank pain no discomfort bowel sounds are present. There is no edema to the extremities. #1 Interpretation EKG Date: 07/02/21 Time: 21:11 Rhythm: NSR Rate (Beats/Min): 64 [place]: Normal P-Wave: Present QRS: Normal ST-T: Normal QT: Normal Comparison: No Change (Compared 23 Oct 2020) Course - Vital Signs Last Recorded V/S: Last Vital Signs Temp 97.2 F 07/02/21 21:05 Pulse 51 L 07/02/21 22:22 Resp 14 07/02/21 22:00 BP 125/87 07/02/21 22:22 Pulse Ox 97 07/02/21 22:00 - Orders/Labs/Meds Orders: Active Orders 24 hr Category Date Time Status Peripheral IV Care [RC] . DIRECTED Care 07/02/21 21:08 Active Chest 1V Frontal [CR] Stat Exams 07/02/21 21:07 Taken Aspirin Med 07/02/21 21:15 Active 324 mg PO DAILY Nitroglycerin [Nitrostat] Med 07/02/21 21:09 Active 0.4 mg SL Q5M PRN Sodium Chloride 0.9% [Normal Saline] 1,000 ml Med 07/02/21 21:15 Active IV ASDIRECTED Sodium Chloride 0.9% [Saline Flush] Med 07/02/21 21:07 Active 10 ml FLUSH Q8HR PRN Peripheral IV Insertion Adult [OM.PC] Stat Oth 07/02/21 21:08 Ordered EKG 12 Lead [EK] Stat Ther 07/02/21 21:08 Ordered Medication Orders Aspirin (Aspirin 81 Mg Tab.Chew) 324 mg PO DAILY [facility] Last Admin: 07/02/21 21:14 Dose: 324 mg Documented by: YARED Sodium Chloride (Normal Saline) 1,000 mls @ 150 mls/hr IV ASDIRECTED [facility] Last Admin: 07/02/21 21:15 Dose: 150 mls/hr Documented by: YARED Nitroglycerin (Nitroglycerin 0.4 Mg Tab.Sl) 0.4 mg SL Q5M PRN PRN Reason: Chest Pain Stop: 07/03/21 21:09 Last Admin: 07/02/21 21:21 Dose: 0.4 mg Documented by: Admin: 07/02/21 21:16 Dose: 0.4 mg Documented by: YARED Sodium Chloride (Sodium Chloride 0.9% 10 Ml Syringe) 10 ml FLUSH Q8HR PRN PRN Reason: keep vein open Labs: Laboratory Tests 07/02/21 07/02/21 07/02/21 Range/Units 21:10 21:10 21:10 WBC 6.17 (5.00-10.00) 10^3/uL RBC 4.41 L (4.50-6.00) 10^6/uL Hgb 13.4 (13.0-17.0) g/dL Hct 39.5 L (40.0-52.0) % MCV 89.6 (82.0-92.0) fL MCH 30.4 (27.0-31.0) pg MCHC 33.9 (32.0-36.0) g/dL RDW 13.4 (11.5-14.5) % Plt Count 260 (150-400) 10^3/uL MPV 9.3 (7.4-10.4) fL Immature Gran % (Auto) 0.2 (0.0-5.0) % Neut % (Auto) 52.7 (50.0-70.0) % Lymph % (Auto) 32.9 (20.0-40.0) % [place] % (Auto) 10.0 H (2.0-8.0) % Eos % (Auto) 3.6 H (1.0-3.0) % Baso % (Auto) 0.6 (0.0-1.0) % Neut # (Auto) 3.25 (2.50-7.00) 10^3/uL Lymph # (Auto) 2.03 (1.00-4.00) 10^3/uL [place] # (Auto) 0.62 (0.10-0.80) 10^3/uL Eos # (Auto) 0.22 (0.10-0.30) 10^3/uL Baso # (Auto) 0.04 (0.00-0.10) 10^3/uL Immature Gran # (Auto) 0.01 (0.00-0.50) 10^3/uL APTT (22.8-31.4) SEC D-Dimer, Quantitative < 100 (<400) ng/mL Sodium 142 (136-145) mmol/L Potassium 3.8 (3.5-5.1) mmol/L Chloride 104 (98-107) mmol/L Carbon Dioxide 26.5 (21.0-32.0) mmol/L Anion Gap 15.3 H (5-15) mmol/L BUN 16 (7-18) mg/dL Creatinine 0.99 (0.51-1.17) mg/dL Est Cr Clr Drug Dosing 88.55 mL/min Estimated GFR (MDRD) > 60 mL/min Glucose 90 (70-140) mg/dL Calcium 8.7 (8.7-10.3) mg/dL Total Bilirubin 0.7 (0.2-1.0) mg/dL AST 16 (15-37) U/L ALT 28 (14-63) U/L Alkaline Phosphatase 67 (46-116) U/L Troponin I High Sens 4.300 (0-76.000) pg/mL Total Protein 7.3 (6.4-8.2) g/dL Albumin 3.47 (3.40-5.00) g/dL 07/02/21 Range/Units 21:10 WBC (5.00-10.00) 10^3/uL RBC (4.50-6.00) 10^6/uL Hgb (13.0-17.0) g/dL Hct (40.0-52.0) % MCV (82.0-92.0) fL MCH (27.0-31.0) pg MCHC (32.0-36.0) g/dL RDW (11.5-14.5) % Plt Count (150-400) 10^3/uL MPV (7.4-10.4) fL Immature Gran % (Auto) (0.0-5.0) % Neut % (Auto) (50.0-70.0) % Lymph % (Auto) (20.0-40.0) % [place] % (Auto) (2.0-8.0) % Eos % (Auto) (1.0-3.0) % Baso % (Auto) (0.0-1.0) % Neut # (Auto) (2.50-7.00) 10^3/uL Lymph # (Auto) (1.00-4.00) 10^3/uL [place] # (Auto) (0.10-0.80) 10^3/uL Eos # (Auto) (0.10-0.30) 10^3/uL Baso # (Auto) (0.00-0.10) 10^3/uL Immature Gran # (Auto) (0.00-0.50) 10^3/uL APTT 27.9 (22.8-31.4) SEC D-Dimer, Quantitative (<400) ng/mL Sodium (136-145) mmol/L Potassium (3.5-5.1) mmol/L Chloride (98-107) mmol/L Carbon Dioxide (21.0-32.0) mmol/L Anion Gap (5-15) mmol/L BUN (7-18) mg/dL Creatinine (0.51-1.17) mg/dL Est Cr Clr Drug Dosing mL/min Estimated GFR (MDRD) mL/min Glucose (70-140) mg/dL Calcium (8.7-10.3) mg/dL Total Bilirubin (0.2-1.0) mg/dL AST (15-37) U/L ALT (14-63) U/L Alkaline Phosphatase (46-116) U/L Troponin I High Sens (0-76.000) pg/mL Total Protein (6.4-8.2) g/dL Albumin (3.40-5.00) g/dL Meds: Medications Generic Name Dose Route Start Last Admin Trade Name Freq PRN Reason Stop Dose Admin Aspirin 324 mg 07/02/21 21:15 07/02/21 21:14 Aspirin 81 Mg Tab.Chew PO 324 mg DAILY TELMA Administration Sodium Chloride 1,000 mls @ 150 mls/hr 07/02/21 21:15 07/02/21 21:15 Normal Saline IV 150 mls/hr ASDIRECTED TELMA Administration Nitroglycerin 0.4 mg 07/02/21 21:09 07/02/21 21:21 Nitroglycerin 0.4 Mg Tab.Sl SL 07/03/21 21:09 0.4 mg Q5M PRN Administration Chest Pain Sodium Chloride 10 ml 07/02/21 21:07 Sodium Chloride 0.9% 10 Ml Syringe FLUSH Q8HR PRN keep vein open Discontinued Medications Generic Name Dose Route Start Last Admin Trade Name Freq PRN Reason Stop Dose Admin Ondansetron HCl 8 mg 07/02/21 21:09 07/02/21 21:14 Ondansetron 4 Mg/2 Ml Sdv IVPUSH 07/02/21 21:10 8 mg ONETIME ONE Administration - Re-Assessments/Exams Free Text/Narrative Re-Assessment/Exam: 07/02/21 23:30 pain-free after the second administration of nitroglycerin with good blood pressure response as well. He is monitored closely throughout the stay at which time all laboratory findings returning normal status normal status. Offered Admission for observation/rule out of cardiac involvement which he declines. We did have a lengthy discussion on the aspects of the previous PPI which he is not taking on a regular basis and that I strongly encouraged him to follow-up with the clinic or either Dr. Rosio Whitaker or Dr. Jasiel Espinoza would be able to perform EGD. Departure - Departure Time of Disposition: 22:59 Disposition: Home, Self-Care 01 Condition: Good Clinical Impression: Chest pain due to GERD, HTN, Benign essential hypertension - Discharge Information *PRESCRIPTION DRUG MONITORING PROGRAM REVIEWED*: Not Applicable *COPY OF PRESCRIPTION DRUG MONITORING REPORT IN PATIENT MIGEL: Not Applicable Instructions: Food Choices for Gastroesophageal Reflux Disease, Adult, [id number], Gastroesophageal Reflux Disease, Adult, Hypertension, Adult Referrals: Joy Espinoza MD [Primary Care Provider] - Forms: ED Department Discharge Additional Instructions: All factors to his evening are negative for cardiac involvement and you are pain-free at the time of your discharge. Make sure you take your nitroglycerin if you have return of your pain. Continue all your medications as directed, and restart your Prilosec or omeprazole as originally directed it 2 times a day. Avoid late night meals and carbonated beverages for 2 hours prior to going to bed. Return to the emergency department if symptoms recur. Check with your clinic sometime next week specifically if you are still having intermittent concerns with your digestion and or pressure. You would be a candidate for EGD which Dr. Dalal or Dr. Rosio Britton do here typically on Mondays each week. This would give prove of gastric irritation and or rule out gastric irritation factors. Sepsis Event Note (ED) - Focused Exam Vital Signs: Vital Signs Temp Pulse Resp BP BP Pulse Ox 07/02/21 22:22 51 L 125/87 07/02/21 22:00 63 14 120/83 97 07/02/21 21:45 63 14 129/87 96 07/02/21 21:32 71 18 125/90 94 L 07/02/21 21:21 140/91 H 07/02/21 21:16 155/105 H 07/02/21 21:15 64 18 155/105 H 97 07/02/21 21:05 97.2 F 63 16 176/102 H 97 - Problem List & Annotations (1) Chest pain SNOMED Code(s): 99368609 Code(s): R07.9 - CHEST PAIN, UNSPECIFIED Status: Acute Current Visit: Yes Qualifiers: Chest pain type: unspecified Qualified Code(s): R07.9 - Chest pain, unspecified (2) Chest pain due to GERD SNOMED Code(s): 95396849 Code(s): K21.9 - GASTRO-ESOPHAGEAL REFLUX DISEASE WITHOUT ESOPHAGITIS; R07.9 - CHEST PAIN, UNSPECIFIED Status: Chronic Priority: Medium Current Visit: Yes (3) HTN, Benign essential hypertension SNOMED Code(s): 3631855 Code(s): I10 - ESSENTIAL (PRIMARY) HYPERTENSION Status: Chronic Priority: Medium Current Visit: Yes Annotation/Comment:: Well-controlled - Problem List Review Problem List Initiated/Reviewed/Updated: Yes - My Orders Last 24 Hours: My Active Orders 07/02/21 21:07 Chest 1V Frontal [CR] Stat Sodium Chloride 0.9% [Saline Flush] 10 ml FLUSH Q8HR PRN 07/02/21 21:08 Peripheral IV Care [RC] . DIRECTED Peripheral IV Insertion Adult [OM.PC] Stat EKG 12 Lead [EK] Stat 07/02/21 21:09 Nitroglycerin [Nitrostat] 0.4 mg SL Q5M PRN 07/02/21 21:15 Aspirin 324 mg PO DAILY Sodium Chloride 0.9% [Normal Saline] 1,000 ml IV ASDIRECTED - Assessment/Plan Last 24 Hours: My Active Orders 07/02/21 21:07 Chest 1V Frontal [CR] Stat Sodium Chloride 0.9% [Saline Flush] 10 ml FLUSH Q8HR PRN 07/02/21 21:08 Peripheral IV Care [RC] . DIRECTED Peripheral IV Insertion Adult [OM.PC] Stat EKG 12 Lead [EK] Stat 07/02/21 21:09 Nitroglycerin [Nitrostat] 0.4 mg SL Q5M PRN 07/02/21 21:15 Aspirin 324 mg PO DAILY Sodium Chloride 0.9% [Normal Saline] 1,000 ml IV ASDIRECTED Plan: All factors to his evening are negative for cardiac involvement and you are pain -free at the time of your discharge. Make sure you take your nitroglycerin if you have return of your pain. Continue all your medications as directed, and restart your Prilosec or omeprazole as originally directed it 2 times a day. Avoid late night meals and carbonated beverages for 2 hours prior to going to bed. Return to the emergency department if symptoms recur. Check with your clinic sometime next week specifically if you are still having intermittent concerns with your digestion and or pressure. You would be a candidate for EGD which Dr. Dalal or Dr. Rosio Britton do here typically on Mondays each week. This would give prove of gastric irritation and or rule out gastric irritation factors.
[2021-07-02] MEDS ORDERED: Ondansetron 4 MG/2 ML SDV IVPUSH ONE (21:09)
[2021-07-02] MEDS ORDERED: Sodium Chloride 0.9% 1,000 ML IV SCH (21:15)
[2021-07-02] MEDS ORDERED: Aspirin 81 MG Tab.Chew PO SCH (21:15)
[2021-07-02] MEDS: Nitroglycerin 0.4 MG Tab.SL SL PRN ×2 (21:16→21:21)
[2021-07-02 22:22] VITALS: BP 125/87; PULSE 51
[2021-07-02 22:43] LABS: ANION GAP 15.3 mmol/L (5-15); CHLORIDE,CL 104 mmol/L (98-107); SODIUM,NA 142 mmol/L (136-145)
== END 2021-07-02 23:08 | disposition home or self-care (01) ==
LOC: KA.ED 21:01
DX: K21.9 Gastro-esophageal reflux disease without esophagitis (principal); I10 Essential (primary) hypertension; E78.00 Pure hypercholesterolemia, unspecified; Z88.8 Allergy status to other drugs, medicaments and biological substances; Z88.2 Allergy status to sulfonamides; Z79.82 Long term (current) use of aspirin; Z79.899 Other long term (current) drug therapy
CPT/HCPCS: 36415; 71045; 80053; 84484; 85025; 85379; 85730; 93005; 96374; 99284; 99285-25; A9270-GY; J2405; J7030

== ENCOUNTER 2021-10-27 00:02 | Emergency (ER) | payer OTHER ==
[2021-10-27] MEDS ORDERED: Sodium Chloride 0.9% 10 ML Syringe FLUSH PRN (00:16)
[2021-10-27 01:00] LABS: ANION GAP 15.2 mmol/L (5-15); CHLORIDE,CL 102 mmol/L (98-107); SODIUM,NA 139 mmol/L (136-145)
[2021-10-27] MEDS ORDERED: Sodium Chloride 0.9% 1,000 ML IV ONE (01:18)
[2021-10-27] MEDS ORDERED: LORazepam 0.5 MG Tab PO ONE (01:18)
[2021-10-27 01:43] LABS: CORONAVIRUS COVID-19 NAA NEGATIVE (NEGATIVE); RESPIRATORY SYNCYTIAL VIR NAA NEGATIVE (NEGATIVE)
[2021-10-27] MEDS ORDERED: Azithromycin 250 MG Tab PO ONE (02:10)
[2021-10-27 02:37] VITALS: BP 160/90; PULSE 110
== END 2021-10-27 02:50 | disposition home or self-care (01) ==
LOC: KA.ED 00:02
DX: J18.9 Pneumonia, unspecified organism (principal); E78.00 Pure hypercholesterolemia, unspecified; I10 Essential (primary) hypertension; Z95.5 Presence of coronary angioplasty implant and graft; Z88.1 Allergy status to other antibiotic agents; Z88.2 Allergy status to sulfonamides; Z79.82 Long term (current) use of aspirin; Z79.899 Other long term (current) drug therapy; Z20.822 Contact with and (suspected) exposure to COVID-19
CPT/HCPCS: 0241U; 36415; 71046; 80048; 85025; 99285-25; A9270-GY; J7030

== ENCOUNTER 2022-11-13 12:39 | Emergency (ER) | payer BC ==
[2022-11-13 12:55] VITALS: PULSE 75
[2022-11-13 13:02] VITALS: BP 156/105
[2022-11-13] MEDS: Amoxicillin/Clavulanate K 875-125 MG Tab PO ONE (13:08)
[2022-11-13] MEDS: Ketorolac 30 MG/ML SDV IM ONE (13:10)
== END 2022-11-13 13:15 | disposition home or self-care (01) ==
LOC: KA.ED 12:39
DX: K04.7 Periapical abscess without sinus (principal); K08.89 Other specified disorders of teeth and supporting structures; I10 Essential (primary) hypertension; I25.10 Atherosclerotic heart disease of native coronary artery without angina pectoris; E78.00 Pure hypercholesterolemia, unspecified; M19.90 Unspecified osteoarthritis, unspecified site; Z79.82 Long term (current) use of aspirin; Z79.899 Other long term (current) drug therapy; Z88.2 Allergy status to sulfonamides; Z88.8 Allergy status to other drugs, medicaments and biological substances
CPT/HCPCS: 96372; 99282; 99283; A9270-GY; J1885